=== PATIENT | female | born 1955 | race Caucasian/White ===

== ENCOUNTER → 2017-03-13 | Outpatient (CLI) | payer OTHER ==
[2015-04-29 14:48] VITALS: BP 131/72
[~2017-03-13] MED LIST: AMLO10TA4 PO; BENZ100C2 PO; CALC500T27 PO; CARV12.5 PO; CARV12.52 PO; CIPR500T94 PO; DICL100G7 TP; FLUT16SP NS; GABA-585 PO; GLIP5TAB10 PO; HYDR-2762 PO; INSU100I17 SQ; INSU100V8 SQ; LAMO5TB.2 PO; LISI-334 PO; LISI10TA2 PO; LISI1TAB7 PO; LORA-434 PO; METF-620 PO; MONT10TA9 PO; OMEP20CA9 PO; PARO10TA24 PO; PARO40TA3 PO; POTA10TA31 PO; SIMV20TA3 PO; ZOLP5TAB PO
--- NOTE | 2017-03-13 11:52 | RAD ---
DATE: 03/13/2017 EXAM: DIGITAL SCREEN BILAT W/CAD HISTORY: Routine screening COMPARISON: 12/08/2015 This study was interpreted with the benefit of Computerized Aided Detection (CAD). FINDINGS: There are scattered fibroglandular densities in the breasts. No new or enlarging breast densities are seen. No suspicious microcalcifications have developed. IMPRESSION: Stable mammograms without evidence of malignancy. BI-RADS CATEGORY: 2 BENIGN FINDING(S) RECOMMENDED FOLLOW-UP: 12M 12 MONTH FOLLOW-UP PQRS compliance statement: Patient information was entered into a reminder system with a target due date for the next mammogram. Mammography is a sensitive method for finding small breast cancers, but it does not detect them all and is not a substitute for careful clinical examination. A negative mammogram does not negate a clinically suspicious finding and should not result in delay in biopsying a clinically suspicious abnormality. "Our facility is accredited by the [employer]ammography [employer]."
== END | disposition home or self-care (01) ==
LOC: MAMMO 10:23
PROVIDERS: ATTEND Internal Medicine
DX: Z12.31 Encounter for screening mammogram for malignant neoplasm of breast (principal)
CPT/HCPCS: G0202; 77067

== ENCOUNTER 2018-05-27 14:13 | Emergency (ER) | payer MEDICARE, OTHER | END 2018-05-27 18:19 | disposition home or self-care (01) | LOC: ER 14:13 | DX: M25.562 Pain in left knee (principal); M25.521 Pain in right elbow; R07.81 Pleurodynia; I10 Essential (primary) hypertension; E11.9 Type 2 diabetes mellitus without complications; J44.9 Chronic obstructive pulmonary disease, unspecified; Z86.73 Personal history of transient ischemic attack (TIA), and cerebral infarction without residual deficits; Z98.51 Tubal ligation status; Z88.0 Allergy status to penicillin; Z88.1 Allergy status to other antibiotic agents; Z88.8 Allergy status to other drugs, medicaments and biological substances; Z91.018 Allergy to other foods; W18.39XA Other fall on same level, initial encounter; Y93.89 Activity, other specified; Y92.89 Other specified places as the place of occurrence of the external cause; Y99.8 Other external cause status | CPT/HCPCS: 71101; 73060; 73080; 73562; 99284 ==

== ENCOUNTER 2018-08-14 08:38 | Emergency (ER) | payer MEDICARE, OTHER ==
[~2018-08-14] VITALS: Ht 154.9 cm; Wt 118.8 kg
[~2018-08-14 08:38] MED LIST changes: +BENZ-8 PO; -BENZ100C2 PO; -CALC500T27 PO; +CALC500T30 PO; +DICL100G18 TP; -DICL100G7 TP; -METF-620 PO; +METF10007 PO; +NAPR-683 PO; -PARO10TA24 PO; +PARO10TA57 PO
--- NOTE | 2018-08-14 09:14 | PHYS DOC ---
Past Medical History Past Medical History: COPD, Diabetes-Type II, High Cholesterol, Hypertension, TIA, Other Additional Past Medical Histor: sleep apnea; resp. arrest Past Surgical History: Tubal ligation, Other Additional Past Surgical Histo: breast reduction Alcohol Use: Sober Drug Use: None Adult General Chief Complaint Chief Complaint: KNEE INJURY HPI HPI Patient is a 63 year old female presents to the ED complaining of left knee injury x 2 hours ago. States she accidentally rolled out of bed and landed on her left knee. Describes the pain as sharp. Rates the pain as 8/10. Patient able to ambulate without assistance. Denies head/neck injury, LOC, vision changes, nausea/vomiting, dizziness, weakness, chest pain or shortness of breath. Review of Systems Review of Systems Constitutional: Denies fever or chills [] Respiratory: Denies cough or shortness of breath [] Cardiovascular: No additional information not addressed in HPI [] GI: Denies abdominal pain, nausea, vomiting, bloody stools or diarrhea [] : Denies dysuria or hematuria [] Musculoskeletal: Complains of left knee pain. Denies back pain. Integument: Denies rash or skin lesions [] Neurologic: Denies headache, focal weakness or sensory changes [] All other systems were reviewed and found to be within normal limits, except as documented in this note. Current Medications Current Medications Current Medications Medications (Trade) Dose Ordered Sig/Jam Start Time Stop Time Status Last Admin Dose Admin Acetaminophen/ Hydrocodone Bitart (Lortab 5/325) 1 tab 1X ONCE 08/14/18 10:00 08/14/18 10:03 DC 08/14/18 10:04 1 TAB Allergies Allergies Allergies Coded Allergies Type Severity Reaction Last Updated Verified Penicillins Allergy Intermediate 11/28/14 Yes aspirin Allergy Intermediate Itching 12/01/14 Yes erythromycin base Allergy Intermediate 11/28/14 Yes propoxyphene Allergy Intermediate 12/03/14 Yes Uncoded Allergies Type Severity Reaction Last Updated Verified Mushroom Allergy Intermediate 12/03/14 Physical Exam Physical Exam Constitutional: Well developed, well nourished, no acute distress, non-toxic appearance. [] HENT: Normocephalic, atraumatic Neck: Normal range of motion, no tenderness, supple, no stridor. [] Skin: Warm, dry, no erythema, no rash. [] Back: No tenderness, no CVA tenderness. [] Extremities: mild left anterior knee tenderness/ecchymosis. no cyanosis, no clubbing, ROM intact, no edema. [] Neurologic: Alert and oriented X 3, normal motor function, normal sensory function, no focal deficits noted. [] Psychologic: Affect normal, judgement normal, mood normal. [] Current Patient Data Vital Signs Vital Signs Date Time Temp Pulse Resp B/P (MAP) Pulse Ox O2 Delivery O2 Flow Rate FiO2 08/14/18 10:04 16 93 Room Air 08/14/18 10:02 68 154/67 (96) 08/14/18 08:58 97.9 97.9 EKG EKG [] Radiology/Procedures Radiology/Procedures []PROCEDURE: KNEE LEFT 3V Examination: KNEE LEFT 3V History: injury from falling out of bed this am, large purple bruise on top of knee cap Comparison/Correlation: None Findings: Total 3 images of the left knee were obtained. Slight lateral compartment narrowing and spurring are present. Spurring of the medial compartment noted. No fracture or bone destruction. Prepatellar soft tissue swelling is present. Bony mineralization is adequate. No evidence of joint effusion. Impression: Prepatellar soft tissue swelling. Mild degenerative changes. No fracture. Course & Med Decision Making Course & Med Decision Making Pertinent Labs and Imaging studies reviewed. (See chart for details) []Discussed imaging findings with patient. Patient's pain improved. States she is feeling much better. Able to ambulate without assistance. Mando wrap placed. NV intact post placement. Discussed follow-up with orthopedics if pain persists. Provided contact information/education. Discussed reasons to return to the ED. Patient understands and agrees with plan. Dragon Disclaimer Dragon Disclaimer This electronic medical record was generated, in whole or in part, using a voice recognition dictation system. Departure Departure Impression: Primary Impression: Knee contusion Disposition: HOME, SELF-CARE Condition: IMPROVED Referrals: IZA MUNSON MD (PCP) IRA PENA II, MD Patient Instructions: Contusion TIAN ARRIAGA Aug 14, 2018 09:14
--- NOTE | 2018-08-14 09:43 | RAD ---
Examination: KNEE LEFT 3V History: injury from falling out of bed this am, large purple bruise on top of knee cap Comparison/Correlation: None Findings: Total 3 images of the left knee were obtained. Slight lateral compartment narrowing and spurring are present. Spurring of the medial compartment noted. No fracture or bone destruction. Prepatellar soft tissue swelling is present. Bony mineralization is adequate. No evidence of joint effusion. Impression: Prepatellar soft tissue swelling. Mild degenerative changes. No fracture. Electronically signed by: Preston Becker MD (08/14/2018 9:39 AM) [id number]
[2018-08-14] MEDS ORDERED: HYDROcodone/APAP 5/325MG 1 TAB TABLET PO ONE (10:00)
[2018-08-14 10:02] VITALS: BP 154/67
== END 2018-08-14 10:06 | disposition home or self-care (01) ==
LOC: ER 08:38
DX: S80.02XA Contusion of left knee, initial encounter (principal); J44.9 Chronic obstructive pulmonary disease, unspecified; E11.9 Type 2 diabetes mellitus without complications; E78.00 Pure hypercholesterolemia, unspecified; I10 Essential (primary) hypertension; Z86.73 Personal history of transient ischemic attack (TIA), and cerebral infarction without residual deficits; G47.30 Sleep apnea, unspecified; Z88.0 Allergy status to penicillin; Z88.6 Allergy status to analgesic agent; Z88.1 Allergy status to other antibiotic agents; Z88.8 Allergy status to other drugs, medicaments and biological substances; W06.XXXA Fall from bed, initial encounter; Y93.89 Activity, other specified; Y92.89 Other specified places as the place of occurrence of the external cause; Y99.8 Other external cause status
CPT/HCPCS: 73562; 99284

== ENCOUNTER → 2018-08-22 | Outpatient (CLI) | payer MEDICARE, OTHER ==
[2018-08-14 10:02] VITALS: BP 154/67
--- NOTE | 2018-08-27 15:48 | SLEEP ---
DATE OF STUDY: 08/22/2018 PRIMARY CARE PHYSICIAN: Dr. Iza Estrada. REFERRING PHYSICIAN: Dr. Juan Carlos Matamoros. The patient is 63 years old who weighs 262 pounds and has a BMI of 50. The patient underwent sleep study at [facility]. This was a diagnostic study. During the night study, the patient spent 417 minutes in bed and slept for 345 minutes with a sleep efficiency of 83%. Sleep latency was 75 minutes, which was prolonged with an absent REM sleep. Overall, sleep architecture showed normal stage I and stage II sleep, increased slow wave sleep, which is 42% of total sleep time and absent REM sleep. During the night study, the patient had 7 obstructive apneas, no central apneas, 1 mixed apnea and 64 hypopneas. The patient's apnea-hypopnea index was 13 per hour with a supine index of 11 per hour. REM sleep was not observed. EKG monitoring revealed normal sinus rhythm, average heart rate was 77 beats per minute. No arrhythmias observed. No clinically significant PLM seen. Nocturnal oximetry study revealed an average oxygen saturation of 90% with the lowest of 81%. 100% of time, oxygen saturation remained between 80% and 89%. A sustained nocturnal hypoxia suggesting hypoventilation. Due to low AHI, the patient did not meet the split night criteria for CPAP initiation. IMPRESSION: 1. Mild sleep apnea-hypopnea syndrome at an apnea hypopnea index of 13 per hour. Absence of REM sleep can underestimate the severity of sleep apnea. 2. Nocturnal hypoxia suggesting hypoventilation. 3. No clinically significant periodic limb movements. RECOMMENDATIONS: 1. If the patient is clinically symptomatic, then she should return to the sleep lab for CPAP titration study. Alternate treatment option would be to use an oral appliance as recommended by the dentist. 2. Weight loss is strongly advised. 3. Avoid PRESIDENT depressants. 4. Caution regarding driving until symptoms of sleep apnea resolve with the above recommendations. SESAR DOMINGUEZ MD DR: MIKAELA/julio JOB#: [id number] / [id number] IZA Mendez MD, GEORGE MD
== END | disposition home or self-care (01) ==
LOC: SLPLAB 18:28
PROVIDERS: ATTEND Internal Medicine Pulmonary Disease
DX: G47.39 Other sleep apnea (principal); Z87.891 Personal history of nicotine dependence
CPT/HCPCS: 95810

== ENCOUNTER → 2018-08-24 | Outpatient (CLI) | payer MEDICARE, OTHER ==
[2018-08-14 10:02] VITALS: BP 154/67
--- NOTE | 2018-08-24 15:38 | RAD ---
Examination: CT chest without contrast HISTORY: History of tobacco exposure, lung cancer screening. Comparison: None available Technique: Axial CT images of chest were performed without contrast. Coronal and sagittal reformats are performed Exposure: One or more of the following individualized dose reduction techniques were utilized for this examination: 1. Automated exposure control 2. Adjustment of the mA and/or kV according to patient size 3. Use of iterative reconstruction technique FINDINGS: The visualized thyroid gland grossly appears unremarkable. The central airways are patent. The heart size appears unremarkable. Diffuse coronary artery calcifications. Moderate aortic atherosclerosis. The ascending aorta measures 3.9 cm in transverse dimension. No radiologically significant mediastinal lymphadenopathy identified. There are scattered patchy airspace opacities identified in the right middle lobe, bibasilar lungs in the subpleural region and in the left lingula likely atelectasis or infiltrates. Mild bilateral lung emphysematous changes. There is diffuse decreased attenuation noted throughout the liver likely hepatic steatosis. The visualized spleen, adrenals grossly appears unremarkable. Old fractures of the right anterior is fifth, sixth ribs identified. Moderate degenerative changes thoracic spine. Probable old healed fracture of the sternum. IMPRESSION: 1. Scattered patchy airspace opacities identified in the subpleural region of the right lobe, bibasilar lungs and in the left lingula likely atelectasis or infiltrates. Close interval follow-up examination is recommended. 2. Mild bilateral lung emphysematous changes. 3. Diffuse coronary artery calcifications. 4. Hepatic steatosis. Electronically signed by: Hossein Richardson MD (08/24/2018 3:35 PM) [facility] [facility]
== END | disposition home or self-care (01) ==
LOC: CT 13:13
PROVIDERS: ATTEND Internal Medicine Pulmonary Disease
DX: Z12.2 Encounter for screening for malignant neoplasm of respiratory organs (principal); S22.41XD Multiple fractures of ribs, right side, subsequent encounter for fracture with routine healing; I25.10 Atherosclerotic heart disease of native coronary artery without angina pectoris; K76.0 Fatty (change of) liver, not elsewhere classified; J43.9 Emphysema, unspecified; I70.0 Atherosclerosis of aorta; Z72.0 Tobacco use; X58.XXXD Exposure to other specified factors, subsequent encounter
CPT/HCPCS: 71250

== ENCOUNTER → 2018-09-26 | Outpatient (CLI) | payer MEDICARE, OTHER ==
[~2018-09-26] MED LIST changes: +CEPH-264 PO; +HYDR-3164 PO; +ZOLPIDEM 5 MG TABLET. PO ONE; +guaiFENesin ORAL 200 MG/10 ML LIQUID. PO ONE
--- NOTE | 2018-09-27 12:09 | SLEEP ---
DATE OF STUDY: 09/26/2018 SLEEP STUDY ATTENDING PHYSICIAN: Dr. Iza Estrada. HISTORY: The patient is a 63-year-old who weighs 262 pounds with a BMI of 50. The patient's Atkinson score was 11. The patient had a previous sleep study on 08/22/2018, was found to have mild RYANNE, has an AHI of 13 per hour. However, REM sleep was not observed. As she was symptomatic, as a result, she was referred to the sleep lab for CPAP titration study. During the night study, the patient spent 403 minutes in bed and slept for 330 minutes with a sleep efficiency of 78%. Sleep latency of 73 minutes with a REM latency of 115 minutes. Overall, sleep architecture showed normal stage I and stage 2 sleep, increased slow wave sleep, which is 42% of the total sleep time and reduced REM sleep, which is 13% of the total sleep time. The patient was started on CPAP at a pressure of 5 cm water and titrated up to 18 cm water. At the final pressure, the patient slept for 58 minutes. The patient had supine sleep throughout and a very brief REM period was observed. The patient's AHI was reduced to 1 per hour and oxygen saturations, however, fluctuated in the mid to high 80s with the lowest of 86%. The patient used small size full face mask. EKG monitoring revealed normal sinus rhythm, average heart rate was 75 beats per minute. No arrhythmias observed. PLMs were seen at index of 1 per hour and none caused EEG arousals. IMPRESSION: 1. Sleep apnea diagnosed by previous sleep study. 2. No clinically significant periodic limb movements of sleep. 3. Nocturnal hypoxia secondary to combination of sleep apnea and hypoventilation. Not completely resolved on final CPAP pressure. RECOMMENDATIONS: 1. CPAP at 18 cm water completely eliminated the patient's sleep apnea and should be used on a nightly basis. 2. I would recommend outpatient nocturnal oximetry study while on therapeutic CPAP pressure to assess the need for supplemental oxygen. 3. Weight loss is strongly advised. 4. Avoid [employer] depressants. 5. Caution regarding driving until symptoms of sleep apnea resolve with the use of CPAP. SESAR DOMINGUEZ MD DR: MIKAELA/julio JOB#: [id number] / [id number] IZA Mendez MD
== END | disposition home or self-care (01) ==
LOC: RT 18:26
PROVIDERS: ATTEND Internal Medicine Critical Care Medicine
DX: G47.33 Obstructive sleep apnea (adult) (pediatric) (principal); G47.34 Idiopathic sleep related nonobstructive alveolar hypoventilation
CPT/HCPCS: 95811

== ENCOUNTER 2018-09-30 03:32 | Emergency (ER) | payer MEDICARE, OTHER ==
[~2018-09-30] VITALS: Ht 154.9 cm; Wt 114.3 kg
[~2018-09-30 03:32] MED LIST changes: -CEPH-264 PO; -HYDR-3164 PO; -ZOLPIDEM 5 MG TABLET. PO ONE; -guaiFENesin ORAL 200 MG/10 ML LIQUID. PO ONE
[2018-09-30 03:35] VITALS: BP 165/125
[2018-09-30] MEDS ORDERED: DIPHTH,PERTUSS(ACELL),TET TOX 0.5 ML DISP.SYRIN. VAX IM ONE (04:00)
[2018-09-30] MEDS ORDERED: CEPHALEXIN 250 MG CAPSULE. PO ONE (04:00)
[2018-09-30] MEDS ORDERED: HYDROcodone/APAP 5/325MG 1 TAB TABLET PO ONE (04:00)
--- NOTE | 2018-09-30 04:04 | PHYS DOC ---
Past Medical History Past Medical History: COPD, Diabetes-Type II, High Cholesterol, Hypertension, TIA, Other Additional Past Medical Histor: sleep apnea; resp. arrest Past Surgical History: Tubal ligation, Other Additional Past Surgical Histo: breast reduction Alcohol Use: Sober Drug Use: None Adult General Chief Complaint Chief Complaint: FINGER INJURY HPI HPI This is a 63 year old female who presents to the ED after sustaining a crush injury from a TV tray to her right 4th finger. Pt denies other injuries. Her last tetanus immunization was > 5 years ago. Review of Systems Review of Systems Constitutional: Denies fever or chills [] Respiratory: Denies cough or shortness of breath [] Cardiovascular: Denies chest pain [] GI: Denies abdominal pain, nausea, vomiting, bloody stools or diarrhea [] Musculoskeletal: Denies back pain or joint pain [] Integument: Reports finger laceration [] Neurologic: Denies headache, focal weakness or sensory changes [] All other systems were reviewed and found to be within normal limits, except as documented in this note. Current Medications Current Medications Current Medications Medications (Trade) Dose Ordered Sig/Jam Start Time Stop Time Status Last Admin Dose Admin Acetaminophen/ Hydrocodone Bitart (Lortab 5/325) 1 tab 1X ONCE 09/30/18 04:00 09/30/18 04:19 DC 09/30/18 04:03 1 TAB Cephalexin HCl (Keflex) 500 mg 1X ONCE 09/30/18 04:00 09/30/18 04:19 DC 09/30/18 04:03 500 MG Diphtheria/ Tetanus/Acell Pertussis (Boostrix) 0.5 ml ONCE ONCE 09/30/18 04:00 09/30/18 04:20 DC 09/30/18 04:13 0.5 ML Lidocaine/ Epinephrine (LIDOCAINE 2%-EPI 1:100,000 multi-dose) 20 ml 1X ONCE 09/30/18 04:15 09/30/18 04:17 DC 09/30/18 04:22 20 ML Neomycin/ Polymyxin/ Bacitracin (Triple Antibiotic Ointment) 1 pkt 1X ONCE 09/30/18 04:15 09/30/18 04:19 DC 09/30/18 04:15 1 PKT Allergies Allergies Allergies Coded Allergies Type Severity Reaction Last Updated Verified Penicillins Allergy Intermediate 11/28/14 Yes aspirin Allergy Intermediate Itching 12/01/14 Yes erythromycin base Allergy Intermediate 11/28/14 Yes propoxyphene Allergy Intermediate 12/03/14 Yes Uncoded Allergies Type Severity Reaction Last Updated Verified Mushroom Allergy Intermediate 12/03/14 Physical Exam Physical Exam Constitutional: Well developed, well nourished, no acute distress, non-toxic appearance. [] HENT: Normocephalic, atraumatic, bilateral external ears normal, oropharynx moist, no oral exudates, nose normal. [] Eyes: Conjunctiva normal, no discharge. [] Neck: Normal range of motion, no tenderness, supple, no stridor. [] Cardiovascular:Heart rate regular rhythm, no murmur [] Lungs & Thorax: Bilateral breath sounds clear to auscultation [] Abdomen: Bowel sounds normal, soft, no tenderness, no masses, no pulsatile masses. [] Skin: Partial avulsion injury to the right 4th finger. No FB identified. Warm, dry, no erythema, no rash. [] Back: No tenderness, no CVA tenderness. [] Extremities: Partial avulsion injury to the right 4th finger. No FB identified. No tenderness, no cyanosis, no clubbing, ROM intact, no edema. [] Neurologic: Alert and oriented X 3, normal motor function, normal sensory function, no focal deficits noted. [] Psychologic: Affect normal, judgement normal, mood normal. [] Current Patient Data Vital Signs Vital Signs Date Time Temp Pulse Resp B/P (MAP) Pulse Ox O2 Delivery O2 Flow Rate FiO2 09/30/18 04:03 18 Room Air 09/30/18 03:35 97.9 75 165/125 (138) 95 97.9 EKG EKG [] Radiology/Procedures Radiology/Procedures [] Course & Med Decision Making Course & Med Decision Making Pertinent Labs and Imaging studies reviewed. (See chart for details) []This is a 63-year-old female who presents to the ED with a partial avulsion distal right fourth finger. Wound was irrigated with 300 mL of sterile water and cleaned with ChloraPrep. No foreign bodies upon wound exploration or x-ray. Injury was approximated with 12 sutures. Patient stable for discharge with outpatient follow-up with PCP. Discussed findings and plan with patient and family, who acknowledge understanding and agreement. Dragon Disclaimer Dragon Disclaimer This electronic medical record was generated, in whole or in part, using a voice recognition dictation system. Departure Departure Impression: Primary Impression: Open fracture of distal phalangeal tuft Disposition: 01 HOME, SELF-CARE Condition: STABLE Referrals: IZA MUNSON MD (PCP) SHAN RICK MD Patient Instructions: Finger Fracture, [id number], Fingertip Laceration Additional Instructions: Do not soak your wound. You may shower. Clean wound daily with soap and water. Change dressing 2 times daily. Use over the counter antibiotic ointment with each dressing change. Sutures need to be removed in 7-10 days. Present to your family doctor or local urgent care for removal. You may also present to the ED but it will be an additional visit/charge. After suture removal you may use Vitamin E ointment to soften the wound and prevent scarring. Scripts Cephalexin (KEFLEX) 500 Mg Capsule 500 MG PO QID for 7 Days, #28 CAP Prov: JAMEY STORY DO 09/30/18 Hydrocodone/Apap 5-325 (NORCO 5-325 TABLET) 1 Each Tablet 1 TAB PO PRN Q6HRS PRN for PAIN, #10 TAB 0 Refills Prov: JAMEY STORY DO 09/30/18 Laceration/Wound Repair Laceration/Wound Repair : Wound Location: upper extremity (right 4th finger) Wound's Depth, Shape: irregular, flap (partial avulsion of distal fingertip , nail intact) Wound Length (cm): 5 Wound Explored: no foreign body removed Irrigated w/ Saline (ccs): 300 Anesthesia: 1% Lidocaine Volume Anesthetic (ccs): 2 Wound Repaired With: sutures Suture Size/Type: 5:0, nylon Number of Sutures: 12 Layer Closure?: Yes Deep Layer Suture Size/Type: 5:0 (vicryl) Number Deep Layer Sutures: 2 Sterile Dressing Applied?: Yes Splint Applied?: Yes Type of Splint Applied: aluminum finger splint Progress Partial avulsion well approximated with sutures. Pt tolerated procedure well. JAMEY STORY DO Sep 30, 2018 04:04
[2018-09-30] MEDS ORDERED: NEOMY/BACITR/POLYMYXIN OINT PACKET. TP ONE (04:15)
[2018-09-30] MEDS ORDERED: LIDOCAINE 2%/EPI 1:100,000 20 ML VIAL. IJ ONE (04:15)
[2018-09-30] MEDS ORDERED: HYDR-3164 PO (05:17)
[2018-09-30] MEDS ORDERED: CEPH-264 PO (05:17)
--- NOTE | 2018-09-30 07:47 | RAD ---
EXAM: 3 views right ring finger DATE: 09/30/2018 4:00 AM INDICATION: CRUSH INJURY, 4TH DIGIT COMPARISON: No Prior FINDINGS/ IMPRESSION: Comminuted, displaced fracture of the tuft of the right ring finger with full-thickness laceration resulting in approximately 3 mm palmar migration of the tuft fragment. Moderate associated soft tissue swelling is seen. Electronically signed by: Javier Gleason MD (09/30/2018 7:44 AM) [facility]
== END 2018-09-30 05:46 | disposition home or self-care (01) ==
LOC: ER 03:32
DX: S62.634A Displaced fracture of distal phalanx of right ring finger, initial encounter for closed fracture (principal); J44.9 Chronic obstructive pulmonary disease, unspecified; E78.00 Pure hypercholesterolemia, unspecified; E11.9 Type 2 diabetes mellitus without complications; I10 Essential (primary) hypertension; Z86.73 Personal history of transient ischemic attack (TIA), and cerebral infarction without residual deficits; Z88.0 Allergy status to penicillin; Z88.1 Allergy status to other antibiotic agents; Z88.6 Allergy status to analgesic agent; Z88.8 Allergy status to other drugs, medicaments and biological substances; Z91.018 Allergy to other foods; W23.0XXA Caught, crushed, jammed, or pinched between moving objects, initial encounter; Y93.89 Activity, other specified; Y92.89 Other specified places as the place of occurrence of the external cause; Y99.8 Other external cause status
CPT/HCPCS: 29130; 73140; 90471; 90715; 99284; J3490

== ENCOUNTER → 2020-01-06 | Outpatient (CLI) | payer MEDICARE ==
[2019-11-26 08:57] VITALS: BP 178/77
[~2020-01-06] MED LIST changes: +ACET500T68 PO; +AMLO2.5T5 PO; +ATOR10TA60 PO; +CARV12.511 PO; -CARV12.52 PO; +CEFD300C PO; +CEPH-264 PO; +CYAN-25 PO; +DULO60CA6 PO; +HYDR-2145 PO; -HYDR-2762 PO; +HYDR-2765 PO; +HYDR-3164 PO; +HYDR200T5 PO; +IPRA3AMP29 NEB; +LISI1TAB20 PO; -LISI1TAB7 PO; +MOME13HF IH; +MONT10TA49 PO; -MONT10TA9 PO; +OMEG1CAP6 PO; +OMEP20CA16 PO; -OMEP20CA9 PO; +POTA20TA4 PO; +PRED-220 PO; +SIMV20TA18 PO; -SIMV20TA3 PO; +TIZA4TAB2 PO; +TRAM50TA PO; +ZOLPIDEM 5 MG TABLET. PO ONE; +[UNRECOGNIZED DRUG - CODE] PO
--- NOTE | 2020-01-07 09:58 | SLEEP ---
DATE OF STUDY: ATTENDING PHYSICIAN: Iza Estrada M.D. REFERRING PHYSICIAN: Juan Carlos Matamoros M.D. The patient is 64 years old who weighs 256 pounds with a BMI of 48. The patient had a previous history of mild sleep apnea. The patient was also using CPAP at 18 cm water based on the study in 2018. Another CPAP titration study was requested by the patient's photo optics technician. During the night study, the patient spent 434 minutes in bed and slept for 360 minutes with a sleep efficiency of 83%. Sleep latency was 28 minutes with absent REM sleep. Overall, sleep architecture showed normal stage 1 sleep, increased stage 2 sleep, increased slow wave and absent REM sleep. EKG monitoring revealed an average heart rate of 84 beats per minute, no sustained arrhythmias observed. PLMS were seen at an index of 48 per hour and 13 per hour caused EEG arousals. The patient was started on CPAP at 18 cm water and titrated up to 20 cm water. The patient was then switched to BiPAP starting at a pressure of 24/20 and titrated up to 30/25. At that pressure, the patient had 46 minutes of sleep and AHI was 0 per hour. However, looking in detail about the CPAP and BiPAP data, I think the patient did reasonably well. At a CPAP pressure of 20 cm water, the patient slept for 84 minutes. The patient had supine sleep throughout. No REM sleep observed. The patient's AHI was 6 per hour and oxygen saturations remained in the mid to high 80s.despite resolution of respiratory events. I would recommend the patient should be placed on this CPAP pressure with oxygen. The patient used small size full-face mask. IMPRESSION: 1. Sleep apnea diagnosed by previous sleep study. 2. [id number] period limb movements of sleep. RECOMMENDATIONS: 1. CPAP at 20 cm of water with 1 L of supplemental oxygen should be used on a nightly basis. 2. Follow up in 4-6 weeks to assess compliance with CPAP and to document clinical improvement. 3. Weight loss is strongly advised. 4. Avoid BROACH [employer]ER depressants. 5. Cautioned regarding driving until symptoms of sleep apnea resolve with the use of CPAP. 6. The patient should also be ruled out for other etiologies of hypoxia such as underlying pulmonary or cardiac conditions. SESAR DOMINGUEZ MD DR: MIKAELA/julio JOB#: [id number] / [id number] IZA Mendez MD, GEORGE MD [facility]
== END ==
LOC: RT 18:54
PROVIDERS: ATTEND Internal Medicine Pulmonary Disease
DX: G47.30 Sleep apnea, unspecified (principal)
CPT/HCPCS: 95811

== ENCOUNTER → 2020-01-28 | Outpatient (CLI) | payer MEDICARE, OTHER ==
[2019-11-26 08:57] VITALS: BP 178/77
[~2020-01-28] MED LIST changes: -ZOLPIDEM 5 MG TABLET. PO ONE
--- NOTE | 2020-01-29 08:22 | RAD ---
History: Routine Screening. Technique: Bilateral digital mammographic routine views were obtained with CAD - computer aided detection. Comparison: 03/13/17, 12/08/15 . Findings: Breast Tissue Density A : The breast tissue is predominately fatty replaced. There are no suspicious masses, microcalcifications or areas of architectural distortion. Impression: Negative mammogram. BI-RADS Category 1: Negative. Normal interval followup. . A mammogram does not have 100% sensitivity and therefore a negative imaging study should not delay further work up of a suspicious abnormality. The patient will receive a letter with the results in the mail. Patient information is entered into the reminder system with a target due date for the next screening mammogram. The patient will receive a reminder. "Our facility is accredited by the [employer] Mammography Program." BI-RADS 1 -- negative findings (within normal)
== END | disposition home or self-care (01) ==
LOC: MAMMO 09:21
PROVIDERS: ATTEND Internal Medicine
DX: Z12.31 Encounter for screening mammogram for malignant neoplasm of breast (principal)
CPT/HCPCS: 77067

== ENCOUNTER 2021-02-21 08:59 | Emergency (ER) | payer OTHER ==
[~2021-02-21] VITALS: Ht 152.4 cm; Wt 63.6 kg
[~2021-02-21 08:59] MED LIST changes: -DICL100G18 TP; +DICL100G54 TP; -LISI-334 PO; +LISI10TA16 PO; -LISI10TA2 PO; +LISI20TA18 PO
[2021-02-21] MEDS ORDERED: IV NORMAL SALINE 1000ML BAG 1,000 ML IV ONE (10:00)
[2021-02-21] MEDS ORDERED: DEXAMETHASONE SOD PHOS 20 MG/5 ML VIAL. IVP ONE (10:00)
--- NOTE | 2021-02-21 10:06 | RAD ---
Exam performed: One view chest HISTORY: Shortness of breath DATE OF SERVICE: 02/21/2021. COMPARISON: One view chest from 11/22/2019. FINDINGS: Single AP upright portable view chest is obtained. Cardiomegaly. Pulmonary vascularity is unremarkabl e. There is suggestion of a right hilar mass or fullness.. This could perhaps also represent a promin ent pulmonary artery. The lungs are essentially clear. Haziness in the left lung base is perhaps rela julio to overlying soft tissues and cardiac silhouette. IMPRESSION: Right hilar fullness/mass. Evaluation with CT chest with contrast may be obtained to rule out possibi lity of underlying mass or lymph node Electronically signed by: Jaimee Nogueira MD (02/21/2021 10:04 AM) [facility]
[2021-02-21 10:23] LABS: BASO % 0 % (0-3); EOS # 0.1 x10^3/uL (0.0-0.7); EOS % 1 % (0-3); HEMOGLOBIN 10.3 g/dL (12.0-15.5); LYMPH # 0.7 x10^3/uL (1.0-4.8); LYMPH % 7 % (24-48); MEAN CORPUSCULAR HEMOGLOBIN 28 pg (25-35); MEAN CORPUSCULAR HGB CONC 33 g/dL (31-37); MEAN CORPUSCULAR VOLUME 84 fL (79-100); MONO # 0.9 x10^3/uL (0.0-1.1); MONO % 9 % (0-9); NEUT # 8.1 x10^3/uL (1.8-7.7); NEUT % 83 % (31-73); PLATELET COUNT 204 x10^3/uL (140-400); RED CELL DISTRIBUTION WIDTH 15.2 % (11.5-14.5); WHITE BLOOD COUNT 9.7 x10^3/uL (4.0-11.0)
[2021-02-21 10:33] LABS: CALCIUM 9.2 mg/dL (8.5-10.1); CREATININE 1.2 mg/dL (0.6-1.0); GFR 44.8; POTASSIUM 3.5 mmol/L (3.5-5.1)
[2021-02-21 10:35] LABS: INFLUENZA A PATIENT NEGATIVE (NEGATIVE); INFLUENZA B PATIENT NEGATIVE (NEGATIVE)
--- NOTE | 2021-02-21 10:35 | ED.ADGEN ---
Past Medical History Past Medical History: Arthritis, COPD, Diabetes-Type II, Fibromyalgia, High Cholesterol, Hypertension, TIA, Other Additional Past Medical Histor: sleep apnea; resp. arrest, OSTEO & RHEUMATOID ARTHRITIS,PSORIASIS Past Surgical History: Tubal ligation, Other Additional Past Surgical Histo: breast reduction Smoking Status: Former Smoker Alcohol Use: Sober Drug Use: None General Adult EDM: Chief Complaint: SHORTNESS OF BREATH HPI: HPI: Patient is a 65 year old female coming in for worsening shortness of breath. Patient usually has oxygen numbers at home, 2 L nasal cannula. Says short of breath document emergency department was satting 82% on room air. Patient states she has had worsening shortness of breath, cough, and fatigue. Denies any known Covid exposures and has had her first [place] vaccine and is scheduled for second 1 in 1 week. Denies any GI complaints, fevers, urinary complaints, or loss of smell or taste. Has a history of COPD and former tobacco use. Review of Systems: Review of Systems: All other systems within normal limits except for as noted in the HPI Current Medications: Current Medications Medications (Trade) Dose Ordered Sig/Jam Start Time Stop Time Status Last Admin Dose Admin Dexamethasone Sodium Phosphate (Decadron) 10 mg 1X ONCE 02/21/21 10:00 02/21/21 10:01 DC 02/21/21 10:38 10 MG Info (CONTRAST GIVEN -- Rx MONITORING) 1 each PRN DAILY PRN 02/21/21 11:30 02/23/21 11:29 Iohexol (Omnipaque 350 Mg/ml) 75 ml 1X ONCE 02/21/21 11:30 02/21/21 11:31 DC 02/21/21 11:47 90 ML Sodium Chloride 1,000 ml @ 1,000 mls/hr 1X ONCE 02/21/21 10:00 02/21/21 10:59 DC 02/21/21 10:38 1,000 MLS/HR Allergies: Allergies: Allergies Coded Allergies Type Severity Reaction Last Updated Verified Penicillins Allergy Intermediate 09/24/19 Yes aspirin Allergy Intermediate Itching 12/01/14 Yes erythromycin base Allergy Intermediate 11/28/14 Yes levofloxacin Allergy Intermediate HIVES 09/25/19 Yes mushroom Allergy Intermediate 09/24/19 Yes propoxyphene Allergy Intermediate 12/03/14 Yes Physical Exam: PE: Constitutional: Well developed, well nourished, no acute distress, non-toxic appearance. [] HENT: Normocephalic, atraumatic, bilateral external ears normal, nose normal. [] Eyes: PERRLA, conjunctiva normal, no discharge. [] Neck: No rigidity, supple, no stridor. [] Cardiovascular: Regular rate and rhythm, brisk cap refill [] Lungs & Thorax: Non labored symmetric respirations, mild tachypnea without accessory muscle use, diminished breath sounds. [] Abdomen: Soft, nondistended, no tenderness. Skin: Warm, dry, no erythema, no rash. [] Back: Unremarkable Extremities: No deformities, range of motion grossly intact, no lower extremity edema [] Neurologic: Alert and oriented X 3, no focal deficits noted. [] Psychologic: Affect normal, judgement normal, mood normal. [] Current Patient Data: Labs: Laboratory Tests Test 02/21/21 09:47 02/21/21 10:04 02/21/21 10:43 Influenza Type A Antigen Negative (NEGATIVE) Influenza Type B Antigen Negative (NEGATIVE) SARS-CoV-2 RNA (ZAHRA) Negative (Negative) White Blood Count 9.7 x10^3/uL (4.0-11.0) Red Blood Count 3.70 x10^6/uL (3.50-5.40) Hemoglobin 10.3 g/dL (12.0-15.5) L Hematocrit 31.0 % (36.0-47.0) L Mean Corpuscular Volume 84 fL (79-100) Mean Corpuscular Hemoglobin 28 pg (25-35) Mean Corpuscular Hemoglobin Concent 33 g/dL (31-37) Red Cell Distribution Width 15.2 % (11.5-14.5) H Platelet Count 204 x10^3/uL (140-400) Neutrophils (%) (Auto) 83 % (31-73) H Lymphocytes (%) (Auto) 7 % (24-48) L Monocytes (%) (Auto) 9 % (0-9) Eosinophils (%) (Auto) 1 % (0-3) Basophils (%) (Auto) 0 % (0-3) Neutrophils # (Auto) 8.1 x10^3/uL (1.8-7.7) H Lymphocytes # (Auto) 0.7 x10^3/uL (1.0-4.8) L Monocytes # (Auto) 0.9 x10^3/uL (0.0-1.1) Eosinophils # (Auto) 0.1 x10^3/uL (0.0-0.7) Basophils # (Auto) 0.0 x10^3/uL (0.0-0.2) D-Dimer (Tiffanie) 0.77 ug/mlFEU (0.00-0.50) H Sodium Level 138 mmol/L (136-145) Potassium Level 3.5 mmol/L (3.5-5.1) Chloride Level 100 mmol/L (98-107) Carbon Dioxide Level 31 mmol/L (21-32) Anion Gap 7 (6-14) Blood Urea Nitrogen 18 mg/dL (7-20) Creatinine 1.2 mg/dL (0.6-1.0) H Estimated GFR (Cockcroft-Gault) 44.8 BUN/Creatinine Ratio 15 (6-20) Glucose Level 150 mg/dL (70-99) H Lactic Acid Level 1.6 mmol/L (0.4-2.0) Calcium Level 9.2 mg/dL (8.5-10.1) Total Bilirubin 0.6 mg/dL (0.2-1.0) Aspartate Amino Transferase (AST) 16 U/L (15-37) Alanine Aminotransferase (ALT) 27 U/L (14-59) Alkaline Phosphatase 54 U/L (46-116) Troponin I Quantitative < 0.017 ng/mL (0.000-0.055) QC-Mnb-R-Type Natriuretic Peptide 442 pg/mL (0-124) H Total Protein 7.0 g/dL (6.4-8.2) Albumin 3.5 g/dL (3.4-5.0) Albumin/Globulin Ratio 1.0 (1.0-1.7) Urine Collection Type Unknown Urine Color Yellow Urine Clarity Clear Urine pH 6.5 (<5.0-8.0) Urine Specific Dinosaur 1.010 (1.000-1.030) Urine Protein 100 mg/dL (NEG-TRACE) Urine Glucose (UA) Negative mg/dL (NEG) Urine Ketones (Stick) Negative mg/dL (NEG) Urine Blood Small (NEG) Urine Nitrite Positive (NEG) Urine Bilirubin Negative (NEG) Urine Urobilinogen Dipstick 1.0 mg/dL (0.2 mg/dL) Urine Leukocyte Esterase Small (NEG) Urine RBC 3-5 /HPF (0-2) Urine WBC 20-40 /HPF (0-4) Urine Squamous Epithelial Cells Mod /LPF Urine Bacteria Many /HPF (0-FEW) Urine Mucus Slight /LPF Laboratory Tests 02/21/21 10:04 Laboratory Tests 02/21/21 10:04 Vital Signs: Vital Signs Date Time Temp Pulse Resp B/P (MAP) Pulse Ox O2 Delivery O2 Flow Rate FiO2 02/21/21 09:30 102.5 24 195/84 (121) 82 Room Air 102.5 EKG: EKG: Sinus rhythm warranted there is minute, normal axis. No ST elevation or depression, no ectopy. [] Heart Score: C/O Chest Pain: No Risk Factors: Risk Factors: DM, Current or recent (<one month) smoker, HTN, HLP, family history of CAD, obesity. Risk Scores: Score 0 - 3: 2.5% MACE over next 6 weeks - Discharge Home Score 4 - 6: 20.3% MACE over next 6 weeks - Admit for Clinical Observation Score 7 - 10: 72.7% MACE over next 6 weeks - Early Invasive Strategies Radiology/Procedures: Radiology/Procedures: Exam performed: One view chest HISTORY: Shortness of breath DATE OF SERVICE: 02/21/2021. COMPARISON: One view chest from 11/22/2019. FINDINGS: Single AP upright portable view chest is obtained. Cardiomegaly. Pulmonary vascularity is unremarkable. There is suggestion of a right hilar mass or fullness.. This could perhaps also represent a prominent pulmonary artery. The lungs are essentially clear. Haziness in the left lung base is perhaps related to overlying soft tissues and cardiac silhouette. IMPRESSION: Right hilar fullness/mass. Evaluation with CT chest with contrast may be obtained to rule out possibility of underlying mass or lymph node [] Course & Med Decision Making: Course & Med Decision Making Pertinent Labs and Imaging studies reviewed. (See chart for details) CT clear for pneumonia, patient will be discharged as a PUI for COVID-19. Has urinary tract infection. Patient will be sent home with steroids due to COPD and antibiotics. Tract infection. Patient initially was hypoxic on room air but comes up and is maintaining her O2 sats in the high 90s. Has home oxygen and is instructed to wear it [] Dragon Disclaimer: Dragon Disclaimer: This electronic medical record was generated, in whole or in part, using a voice recognition dictation system. Departure Departure Impression: Primary Impression: UTI (lower urinary tract infection) Additional Impressions: COPD (chronic obstructive pulmonary disease) Person under investigation for COVID-19 Disposition: 01 DC HOME SELF CARE/HOMELESS Condition: STABLE Referrals: IZA MUNSON MD (PCP) Additional Instructions: You have been tested for or diagnosed with COVID-19. It is an infection caused by a new type of coronavirus. COVID-19 will cause cold-like or mild flu symptoms in most. It can cause more severe symptoms like problems breathing in some. There is no treatment for COVID-19. The body will clear the infection over time. Self-care will help to ease discomfort. Steps to Take: Self-Care Rest as needed. Healthy habits may help you feel better. Steps include: Choose healthy foods including fruits and vegetables. Drink water throughout the day. Get plenty of sleep each night. If you smoke, try to quit. It may ease breathing. Avoid alcohol. Keep Others Healthy The virus can spread to others. Droplets are released every time you sneeze or cough. The droplets can get into the mouth, nose, or eyes of people near you and lead to infection. To lower the chances of spreading COVID-19 to others: Stay at home until your doctor has said it is safe to leave. If you tested positive this will mean staying isolated until both of the following are true: At least 7 days have passed since the start of illness. You are free of fever for at least 72 hours without the use of medicine. During this time: - Avoid public areas, events, or transportation. Do not return to work or critical access hospitaloo until your doctor has said it is safe to do so. - Call ahead if you need to go to a medical center. Let them know you may have COVID-19. It will help them guide you where to go. They may also ask you to wear a facemask when you come to the office. - If you call for emergency medical services, let them know you may have COVID- 19. While at home: - Try to avoid close contact with others. Stay about 6 feet away. - If possible, spend most of your time in a separate room from others. - Use a face mask if you will be in close contact with others such as sharing a room or vehicle. - Have someone wipe down common surfaces in the home. Use household paper box cutter every day on areas like doorknobs, counters, or sinks. - Cough or sneeze into a tissue. Throw the tissue away right after use. If a tissue is not available, cough or sneeze into your elbow. - Wash your hands often. Wash them after sneezing or coughing. Use soap and water and wash for at least 20 seconds. Alcohol based hand cotton cleaner can be used if soap and water is not available. - Do not prepare food for others. Avoid sharing personal items like forks, spoons, or toothbrushes. - Avoid close contact with pets while you are sick. There is no evidence of the virus passing to pets. This is a safety step until more is known about this virus. Isolation can be frustrating. Social interaction can help. Keep in touch with friends and family through phone and tech options. You can still interact with others in your home, just keep a safe distance of about 6 feet. Follow-up: Your doctors office will check in with you to see if there are any changes in your health. You may be asked to keep track of symptoms to share with them. They will also let you know when you are clear to be in public again. Problems to Look Out For: Contact your doctor if your recovery is not going as you expect. Get emergency care if you have problems such as: - Trouble breathing - Nonstop chest pain or pressure - Changes in awareness, confusion, or problems waking - Lips or face have bluish color - Worsening of symptoms If you think you have an emergency, call for emergency medical services right away. [facility] [place] [facility] [place] [facility] [place] [facility] Prednisone (PREDNISONE) 50 Mg Tablet 1 TAB PO DAILY for steroid, #5 TAB Prov: BLANCA RODRIGUEZ MD 02/21/21 Cefpodoxime Proxetil (CEFPODOXIME PROXETIL) 200 Mg Tablet 1 TAB PO BID for antibiotic, #14 TAB Prov: BLANCA RODRIGUEZ MD 02/21/21 Problem Qualifiers BLANCA RODRIGUEZ MD Feb 21, 2021 10:35
[2021-02-21 10:39] LABS: ALBUMIN 3.5 g/dL (3.4-5.0); TOTAL BILIRUBIN 0.6 mg/dL (0.2-1.0)
[2021-02-21 10:53] LABS: BILIRUBIN,URINE NEGATIVE (NEG); CLARITY,URINE CLEAR; COLOR,URINE YELLOW; NITRITE,URINE POSITIVE (NEG); PH,URINE 6.5 (<5.0-8.0); PROTEIN,URINE 100 mg/dL (NEG-TRACE)
[2021-02-21 10:59] LABS: BACTERIA,URINE MANY /HPF (0-FEW)
[2021-02-21 11:00] LABS: WBC,URINE 20-40 /HPF (0-4)
[2021-02-21] MEDS ORDERED: CONTRAST GIVEN. MC PRN (11:30)
[2021-02-21] MEDS ORDERED: IOHEXOL 350 MG/ML 100 ML VIAL. IV ONE (11:30)
--- NOTE | 2021-02-21 12:07 | RAD ---
CTA CHEST dated 02/21/2021 11:24 AM Indication:Reason: HYPOXIA, possible PE / Spl. Instructions: IV OMNI 350 90 MLS / History: Comparison: CT chest 08/24/2018. Technique: Thin section images were made through the chest using an infusion of 90 mL Omnipaque 350. MIP reconstructions were performed. One or more of the following individualized dose reduction techniques were utilized for this examinat ion: 1. Automated exposure control 2. Adjustment of the mA and/or kV according to patient size 3. Use of iterative reconstruction technique Findings: Peripheral areas of opacity on the prior study have cleared. There is minimal atelectasis. Mild motio n artifact slightly limits evaluation. There is evidence of some mild underlying emphysema. No other significant pulmonary parenchymal abnormality is seen. The central airways show no obstruction. No en larged lymph nodes are seen. The thoracic aorta is normal in caliber without evidence of dissection. Evaluation of the pulmonary arterial tree shows modest opacification of the pulmonary artery branches . Evaluation is limited somewhat by the respiratory motion artifact. No abnormal filling defect is id entified, at least out to the segmental branch level. Images through the upper abdomen show some fatty infiltration of the liver, but no acute abnormality is seen. IMPRESSION: No identified acute abnormality. There is minimal atelectasis in the lungs. No pulmonary embolism is seen, although evaluation of smaller peripheral branches is limited by respiratory motion. Electronically signed by: Doug Napoles Jr., MD (02/21/2021 12:05 PM) [id number]
[2021-02-21 13:28] VITALS: BP 150/69
[2021-02-21] MEDS ORDERED: PRED50TA PO (13:30)
[2021-02-21] MEDS ORDERED: CEFP200T PO (13:30)
--- NOTE | 2021-02-22 07:29 | EKG ---
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
--- NOTE | 2021-02-22 09:30 | NUR ---
IP: Informed pt of negative COVID test. Pt verbalized understanding.
== END 2021-02-21 14:19 | disposition home or self-care (01) ==
LOC: ER 08:59
DX: J44.9 Chronic obstructive pulmonary disease, unspecified (principal); Z20.822 Contact with and (suspected) exposure to COVID-19; N39.0 Urinary tract infection, site not specified; R05 Cough; M19.90 Unspecified osteoarthritis, unspecified site; E11.9 Type 2 diabetes mellitus without complications; M79.7 Fibromyalgia; E78.00 Pure hypercholesterolemia, unspecified; I10 Essential (primary) hypertension; Z86.73 Personal history of transient ischemic attack (TIA), and cerebral infarction without residual deficits; Z87.891 Personal history of nicotine dependence; Z98.51 Tubal ligation status; Z98.890 Other specified postprocedural states; Z88.0 Allergy status to penicillin; Z88.1 Allergy status to other antibiotic agents; Z88.8 Allergy status to other drugs, medicaments and biological substances; Z91.018 Allergy to other foods; Z88.6 Allergy status to analgesic agent
CPT/HCPCS: 36415; 71045; 71275; 80053; 81001; 83605; 83880; 84484; 85025; 85379; 87040; 87086; 87205; 87804; 93005; 96361; 96374; 99285; J1100; J7030; Q9967; U0003

== ENCOUNTER 2021-02-22 10:15 | Emergency (ER) | payer OTHER ==
[~2021-02-22] VITALS: Ht 154.9 cm; Wt 115.5 kg
[~2021-02-22 10:15] MED LIST changes: +CEFP200T PO; +PRED50TA PO
--- NOTE | 2021-02-22 10:33 | PHYS DOC ---
Past Medical History Past Medical History: Arthritis, COPD, Diabetes-Type II, Fibromyalgia, High Cholesterol, Hypertension, TIA, Other Additional Past Medical Histor: sleep apnea; resp. arrest, OSTEO & RHEUMATOID ARTHRITIS,PSORIASIS Past Surgical History: Tubal ligation, Other Additional Past Surgical Histo: breast reduction Smoking Status: Former Smoker Alcohol Use: Sober Drug Use: None General Adult EDM: Chief Complaint: ABNORMAL LABS HPI: HPI: Patient is a 65 year old female with history of diabetes type 2, hypertension, high cholesterol, fibromyalgia, COPD on oxygen 2 L at home who presents today for repeat lab draws. Patient was seen in the ED yesterday for shortness of breath, diagnosed with UTI and sent home on antibiotics. She states today she received a call that one of her blood cultures grew infection. She states she only wants the blood cultures drawn and does not want any other testing or lab draws. She states she feels 100% better and is actually questioning why she is in the ED right now Blood culture was positive for GRAM POSITIVE RODS IN 1 OF 2 BOTTLES OF A SINGLE SET COLLECTED. Review of Systems: Review of Systems: Constitutional: Return for blood draw denies fever or chills. [] Eyes: Denies change in visual acuity. [] HENT: Denies nasal congestion or sore throat. [] Respiratory: Denies cough or shortness of breath. [] Cardiovascular: Denies chest pain or edema. [] GI: Denies abdominal pain, nausea, vomiting, bloody stools or diarrhea. [] : Denies dysuria. [] Musculoskeletal: Denies back pain or joint pain. [] Integument: Denies rash. [] Neurologic: Denies headache, focal weakness or sensory changes. [] Psychiatric: Denies depression or anxiety. [] Heart Score: C/O Chest Pain: N/A Risk Factors: Risk Factors: DM, Current or recent (<one month) smoker, HTN, HLP, family history of CAD, obesity. Risk Scores: Score 0 - 3: 2.5% MACE over next 6 weeks - Discharge Home Score 4 - 6: 20.3% MACE over next 6 weeks - Admit for Clinical Observation Score 7 - 10: 72.7% MACE over next 6 weeks - Early Invasive Strategies Allergies: Allergies: Allergies Coded Allergies Type Severity Reaction Last Updated Verified Penicillins Allergy Intermediate 09/24/19 Yes aspirin Allergy Intermediate Itching 12/01/14 Yes erythromycin base Allergy Intermediate 11/28/14 Yes levofloxacin Allergy Intermediate HIVES 09/25/19 Yes mushroom Allergy Intermediate 09/24/19 Yes propoxyphene Allergy Intermediate 12/03/14 Yes Physical Exam: PE: Constitutional: Well developed, well nourished, no acute distress, non-toxic appearance. [] HENT: Normocephalic, atraumatic, bilateral external ears normal, oropharynx moist, no oral exudates, nose normal. [] Eyes: PERRLA, EOMI, conjunctiva normal, no discharge. [] Neck: Normal range of motion, no tenderness, supple, no stridor. [] Cardiovascular:Heart rate regular rhythm, no murmur [] Lungs & Thorax: Bilateral breath sounds clear to auscultation [] Abdomen: Bowel sounds normal, soft, no tenderness, no masses, no pulsatile masses. [] Skin: Warm, dry, no erythema, no rash. [] Back: No tenderness, no CVA tenderness. [] Extremities: No tenderness, no cyanosis, no clubbing, ROM intact, no edema. [] Neurologic: Alert and oriented X 3, normal motor function, normal sensory function, no focal deficits noted. [] Psychologic: Affect normal, judgement normal, mood normal. [] EKG: EKG: [] Radiology/Procedures: Radiology/Procedures: [] Course & Med Decision Making: Course & Med Decision Making Labs and Imaging studies reviewed. (See chart for details) This is a 65-year-old female patient presenting to the ED today for for repeat blood cultures. She was in the ED yesterday for shortness of breath and diagnosed with UTI. This morning one of her blood cultures bottles grew gram- positive rods. Patient is insisting only blood cultures to be done and she goes home. She states she is 100% better. Blood cultures were drawn, positive results will be called to patient. She was discharged to home. Follow-up with PCP Kerry Disclaimer: Kerry Disclaimer: This electronic medical record was generated, in whole or in part, using a voice recognition dictation system. Departure Departure Impression: Primary Impression: Positive blood cultures Disposition: HOME / SELF CARE / HOMELESS Condition: STABLE Referrals: IZA MUNSON MD (PCP) Follow-up in the course of this week Patient Instructions: Blood Culture and Sensitivity Additional Instructions: You had blood cultures drawn today. We will call you with the positive results, if you do not hear from us the results are negative. Please continue taking the rest of your medicines. Follow-up with your doctor in the course of this week, come back to the ED symptoms worsen DEMIAN DEL TORO APRN Feb 22, 2021 10:33
[2021-02-22 11:42] VITALS: BP 164/82
== END 2021-02-22 11:40 | disposition home or self-care (01) ==
LOC: ER 10:15
DX: R78.81 Bacteremia (principal); R06.02 Shortness of breath; M19.90 Unspecified osteoarthritis, unspecified site; J44.9 Chronic obstructive pulmonary disease, unspecified; E11.9 Type 2 diabetes mellitus without complications; M79.7 Fibromyalgia; E78.00 Pure hypercholesterolemia, unspecified; I10 Essential (primary) hypertension; Z86.73 Personal history of transient ischemic attack (TIA), and cerebral infarction without residual deficits; Z98.51 Tubal ligation status; Z87.891 Personal history of nicotine dependence; Z98.890 Other specified postprocedural states; Z88.0 Allergy status to penicillin; Z88.1 Allergy status to other antibiotic agents; Z88.8 Allergy status to other drugs, medicaments and biological substances; Z88.6 Allergy status to analgesic agent
CPT/HCPCS: 36415; 87040; 99284

== ENCOUNTER 2021-03-23 10:45 | Emergency (ER) | payer OTHER ==
[~2021-03-23] VITALS: Ht 154.9 cm; Wt 110.9 kg
[2021-03-23] MEDS ORDERED: ONDANSETRON PF 4 MG/2 ML VIAL. IV ONE (11:30)
[2021-03-23] MEDS ORDERED: hydrALAZINE 20 MG/ML VIAL. IVP ONE ×2 (11:30→14:00)
[2021-03-23] MEDS ORDERED: FAMOTIDINE 20 MG/2 ML VIAL IVP ONE (11:30)
[2021-03-23 11:38] LABS: BILIRUBIN,URINE NEGATIVE (NEG); CLARITY,URINE CLEAR; COLOR,URINE YELLOW; NITRITE,URINE NEGATIVE (NEG); PH,URINE 7.5 (<5.0-8.0); PROTEIN,URINE >=300 mg/dL (NEG-TRACE)
[2021-03-23 11:44] LABS: BASO % 0 % (0-3); EOS # 0.1 x10^3/uL (0.0-0.7); EOS % 1 % (0-3); HEMOGLOBIN 11.8 g/dL (12.0-15.5); LYMPH # 1.6 x10^3/uL (1.0-4.8); LYMPH % 22 % (24-48); MEAN CORPUSCULAR HEMOGLOBIN 28 pg (25-35); MEAN CORPUSCULAR HGB CONC 34 g/dL (31-37); MEAN CORPUSCULAR VOLUME 83 fL (79-100); MONO # 0.4 x10^3/uL (0.0-1.1); MONO % 6 % (0-9); NEUT # 5.1 x10^3/uL (1.8-7.7); NEUT % 71 % (31-73); PLATELET COUNT 263 x10^3/uL (140-400); RED BLOOD COUNT 4.24 x10^6/uL (3.50-5.40); RED CELL DISTRIBUTION WIDTH 15.8 % (11.5-14.5); WHITE BLOOD COUNT 7.2 x10^3/uL (4.0-11.0)
[2021-03-23 12:00] LABS: BACTERIA,URINE 0 /HPF (0-FEW); RBC,URINE 0 /HPF (0-2)
[2021-03-23 12:00] LABS: CALCIUM 9.4 mg/dL (8.5-10.1); CREATININE 0.8 mg/dL (0.6-1.0); GFR 71.5; POTASSIUM 3.6 mmol/L (3.5-5.1)
[2021-03-23 12:06] LABS: ALBUMIN 4.3 g/dL (3.4-5.0); ALBUMIN/GLOBULIN RATIO 1.4 (1.0-1.7); MAGNESIUM 1.8 mg/dL (1.8-2.4); TOTAL BILIRUBIN 0.4 mg/dL (0.2-1.0); TOTAL PROTEIN 7.3 g/dL (6.4-8.2)
[2021-03-23] MEDS ORDERED: IOHEXOL 300 MG/ML 100ML VIAL. IV ONE (12:15)
[2021-03-23] MEDS ORDERED: CONTRAST GIVEN. MC PRN (12:15)
--- NOTE | 2021-03-23 12:28 | RAD ---
INDICATION: Reason: chest burning and tightness / Spl. Instructions: / History: COMPARISON: February 21, 2021 FINDINGS: Single view of chest obtained. Cardiomediastinal silhouette is again prominent in size with calcific atherosclerosis. Prominent righ t pulmonary hilum again seen. Mild interstitial prominence bilaterally without well-defined focal air space consolidation. This is similar to prior. IMPRESSION: * Similar examination compared to prior with repeat demonstration of enlarged cardiomediastinal silh ouette as well as prominent pulmonary blair. No new region of consolidation is seen Electronically signed by: Willy Farrell MD (03/23/2021 12:25 PM) [id number]
--- NOTE | 2021-03-23 13:36 | RAD ---
INDICATION: Reason: RUQ abd pain, epigastric TTP / Spl. Instructions: IV OMNI 300 75 MLS / History: . COMPARISON: None. TECHNIQUE: Axial CT images obtained through the abdomen and pelvis with contrast. One or more of the following individualized dose reduction techniques were utilized for this examinat ion: 1. Automated exposure control; 2. Adjustment of the mA and/or kV according to patient size; 3 . Use of iterative reconstruction technique. FINDINGS: Coronary artery calcific atherosclerosis as well as atherosclerotic disease throughout the vasculatur e. Liver is low density which can be seen with fatty infiltration. No peripancreatic fluid collection. There is some motion which limits. Spleen unremarkable. No hydronephrosis. Urinary bladder is partially distended. Lobulated appearance of the uterus with calcification within. Could be from fibroids. Colonic diverticulosis. No periappendiceal inflammatory changes. No dilated loops of bowel to suggest obstruction. Degenerative changes throughout the spine with mild scoliotic curvature. IMPRESSION: * No evidence of bowel obstruction or appendicitis. * Severe calcific atherosclerosis. * Liver is low density which is nonspecific but can be seen with fatty infiltration. * Suspected fibroid uterus Electronically signed by: Willy Farrell MD (03/23/2021 1:34 PM) [id number]
--- NOTE | 2021-03-23 14:05 | ED.ADGEN ---
Past Medical History Past Medical History: Arthritis, COPD, Diabetes-Type II, Fibromyalgia, High Cholesterol, Hypertension, Renal Failure, TIA, Other Additional Past Medical Histor: sleep apnea; resp. arrest, OSTEO & RHEUMATOID ARTHRITIS,PSORIASIS Past Surgical History: Tubal ligation, Other Additional Past Surgical Histo: breast reduction Smoking Status: Former Smoker Alcohol Use: Sober Drug Use: None General Adult EDM: Chief Complaint: ABDOMINAL PAIN HPI: HPI: Patient is a 65 year old female, brought to the emergency department by her family with complaints of right upper quadrant abdominal pain, epigastric pain, and nausea for the last 3 days. Patient states she did not take her medications this morning, she takes 3 different medications for her blood pressure. Patient denies any chest pain, palpitations, diarrhea, fever, body aches, headache, or fatigue. She states that she has a chronic cough and is always short of breath, she wears oxygen at 2 L via nasal cannula at all times. Patient denies any increased work of breathing, change in her cough, or concerns of COVID-19. Patient states that she has not vomited she has only had dry heaves. She denies any increase in swelling of her extremities. She currently rates her upper abdominal pain a 9 out of 10 on pain scale and describes it as a constant sharp pain. She denies any radiation of the pain to her back. Patient denies any alleviating factors the pain is worse with dry heaving. Review of Systems: Review of Systems: Complete ROS is negative unless otherwise noted in HPI. Current Medications: Current Medications Medications (Trade) Dose Ordered Sig/Jam Start Time Stop Time Status Last Admin Dose Admin Amlodipine Besylate (Norvasc) 10 mg 1X ONCE 03/23/21 15:15 03/23/21 15:21 DC 03/23/21 15:28 10 MG Famotidine (Pepcid Vial) 20 mg 1X ONCE 03/23/21 11:30 03/23/21 11:31 DC 03/23/21 12:04 20 MG Hydralazine HCl (Apresoline Inj) 10 mg 1X ONCE 03/23/21 14:00 03/23/21 14:02 DC Hydrochlorothiazide (Microzide) 25 mg 1X ONCE 03/23/21 15:15 03/23/21 15:21 DC 03/23/21 15:31 25 MG Info (CONTRAST GIVEN -- Rx MONITORING) 1 each PRN DAILY PRN 03/23/21 12:15 03/23/21 15:50 DC Iohexol (Omnipaque 300 Mg/ml) 75 ml 1X ONCE 03/23/21 12:15 03/23/21 12:16 DC 03/23/21 12:08 75 ML Lisinopril (Prinivil) 20 mg 1X ONCE 03/23/21 15:15 03/23/21 15:21 DC 03/23/21 15:27 20 MG Ondansetron HCl (Zofran) 4 mg 1X ONCE 03/23/21 11:30 03/23/21 11:31 DC 03/23/21 12:03 4 MG Allergies: Allergies: Allergies Coded Allergies Type Severity Reaction Last Updated Verified Penicillins Allergy Intermediate 09/24/19 Yes aspirin Allergy Intermediate Itching 12/01/14 Yes erythromycin base Allergy Intermediate 11/28/14 Yes levofloxacin Allergy Intermediate HIVES 09/25/19 Yes mushroom Allergy Intermediate 09/24/19 Yes propoxyphene Allergy Intermediate 12/03/14 Yes Physical Exam: PE: See Above Constitutional: Well developed, well nourished, no acute distress, non-toxic appearance, obese. [] HENT: Normocephalic, atraumatic, bilateral external ears normal, nose normal. [] Eyes: PERRLA, EOMI, conjunctiva normal, no discharge. [] Neck: Normal range of motion, no stridor. [] Cardiovascular:Heart rate regular rhythm Lungs & Thorax: Respirations even and unlabored, no retractions, no respiratory distress, lung sounds diminished in bases otherwise clear Abdomen: soft, epigastric and right upper quadrant tenderness to palpation, no rebound tenderness, no guarding, no palpable mass, no pulsatile mass, bowel sounds active in all quadrants, Skin: Warm, dry, no erythema, no rash. [] Extremities: No cyanosis, ROM intact, no edema. [] Neurologic: Alert and oriented X 3, normal motor, normal sensory, no focal deficits noted. [] Psychologic: Affect normal, judgement normal, mood normal. [] Current Patient Data: Labs: Laboratory Tests Test 03/23/21 11:01 03/23/21 11:33 Urine Collection Type Void Urine Color Yellow Urine Clarity Clear Urine pH 7.5 (<5.0-8.0) Urine Specific Dalton 1.015 (1.000-1.030) Urine Protein >=300 mg/dL (NEG-TRACE) Urine Glucose (UA) Negative mg/dL (NEG) Urine Ketones (Stick) Trace mg/dL (NEG) Urine Blood Negative (NEG) Urine Nitrite Negative (NEG) Urine Bilirubin Negative (NEG) Urine Urobilinogen Dipstick 1.0 mg/dL (0.2 mg/dL) Urine Leukocyte Esterase Negative (NEG) Urine RBC 0 /HPF (0-2) Urine WBC 1-4 /HPF (0-4) Urine Squamous Epithelial Cells Mod /LPF Urine Bacteria 0 /HPF (0-FEW) White Blood Count 7.2 x10^3/uL (4.0-11.0) Red Blood Count 4.24 x10^6/uL (3.50-5.40) Hemoglobin 11.8 g/dL (12.0-15.5) L Hematocrit 35.0 % (36.0-47.0) L Mean Corpuscular Volume 83 fL (79-100) Mean Corpuscular Hemoglobin 28 pg (25-35) Mean Corpuscular Hemoglobin Concent 34 g/dL (31-37) Red Cell Distribution Width 15.8 % (11.5-14.5) H Platelet Count 263 x10^3/uL (140-400) Neutrophils (%) (Auto) 71 % (31-73) Lymphocytes (%) (Auto) 22 % (24-48) L Monocytes (%) (Auto) 6 % (0-9) Eosinophils (%) (Auto) 1 % (0-3) Basophils (%) (Auto) 0 % (0-3) Neutrophils # (Auto) 5.1 x10^3/uL (1.8-7.7) Lymphocytes # (Auto) 1.6 x10^3/uL (1.0-4.8) Monocytes # (Auto) 0.4 x10^3/uL (0.0-1.1) Eosinophils # (Auto) 0.1 x10^3/uL (0.0-0.7) Basophils # (Auto) 0.0 x10^3/uL (0.0-0.2) Sodium Level 142 mmol/L (136-145) Potassium Level 3.6 mmol/L (3.5-5.1) Chloride Level 101 mmol/L (98-107) Carbon Dioxide Level 28 mmol/L (21-32) Anion Gap 13 (6-14) Blood Urea Nitrogen 14 mg/dL (7-20) Creatinine 0.8 mg/dL (0.6-1.0) Estimated GFR (Cockcroft-Gault) 71.5 BUN/Creatinine Ratio 18 (6-20) Glucose Level 154 mg/dL (70-99) H Calcium Level 9.4 mg/dL (8.5-10.1) Magnesium Level 1.8 mg/dL (1.8-2.4) Total Bilirubin 0.4 mg/dL (0.2-1.0) Aspartate Amino Transferase (AST) 17 U/L (15-37) Alanine Aminotransferase (ALT) 28 U/L (14-59) Alkaline Phosphatase 54 U/L (46-116) Creatine Kinase 50 U/L (26-192) Troponin I Quantitative < 0.017 ng/mL (0.000-0.055) ZQ-Oen-I-Type Natriuretic Peptide 990 pg/mL (0-124) H Total Protein 7.3 g/dL (6.4-8.2) Albumin 4.3 g/dL (3.4-5.0) Albumin/Globulin Ratio 1.4 (1.0-1.7) Lipase 196 U/L (73-393) Laboratory Tests 03/23/21 11:33 Laboratory Tests 03/23/21 11:33 Vital Signs: Vital Signs Date Time Temp Pulse Resp B/P (MAP) Pulse Ox O2 Delivery O2 Flow Rate FiO2 03/23/21 15:28 97 175/74 03/23/21 15:25 22 97 Nasal Cannula 2.5 03/23/21 10:59 98.3 98.3 EKG: EK-SR rate 90, leftward axis, no STEMI read by Dr. Saenz. [] Heart Score: C/O Chest Pain: No Risk Scores: Score 0 - 3: 2.5% MACE over next 6 weeks - Discharge Home Score 4 - 6: 20.3% MACE over next 6 weeks - Admit for Clinical Observation Score 7 - 10: 72.7% MACE over next 6 weeks - Early Invasive Strategies Radiology/Procedures: Radiology/Procedures: PROCEDURE: CHEST AP ONLY INDICATION: Reason: chest burning and tightness / Spl. Instructions: / History: COMPARISON: February 21, 2021 FINDINGS: Single view of chest obtained. Cardiomediastinal silhouette is again prominent in size with calcific atherosclerosis. Prominent right pulmonary hilum again seen. Mild interstitial prominence bilaterally without well-defined focal airspace consolidation. This is similar to prior. IMPRESSION: * Similar examination compared to prior with repeat demonstration of enlarged cardiomediastinal silhouette as well as prominent pulmonary blair. No new region of consolidation is seen Electronically signed by: Willy Farrell MD (03/23/2021 12:25 PM) [id number] PROCEDURE: CT ABD PELV W/ IV CONTRST ONLY INDICATION: Reason: RUQ abd pain, epigastric TTP / Spl. Instructions: IV OMNI 300 75 MLS / History: . COMPARISON: None. TECHNIQUE: Axial CT images obtained through the abdomen and pelvis with contrast. One or more of the following individualized dose reduction techniques were utilized for this examination: 1. Automated exposure control; 2. Adjustment of the mA and/or kV according to patient size; 3. Use of iterative reconstruction technique. FINDINGS: Coronary artery calcific atherosclerosis as well as atherosclerotic disease throughout the vasculature. Liver is low density which can be seen with fatty infiltration. No peripancreatic fluid collection. There is some motion which limits. Spleen unremarkable. No hydronephrosis. Urinary bladder is partially distended. Lobulated appearance of the uterus with calcification within. Could be from fibroids. Colonic diverticulosis. No periappendiceal inflammatory changes. No dilated loops of bowel to suggest obstruction. Degenerative changes throughout the spine with mild scoliotic curvature. IMPRESSION: * No evidence of bowel obstruction or appendicitis. * Severe calcific atherosclerosis. * Liver is low density which is nonspecific but can be seen with fatty infiltration. * Suspected fibroid uterus Electronically signed by: Willy Farrell MD (03/23/2021 1:34 PM) [id number] [] Course & Med Decision Making: Course & Med Decision Making Pertinent Labs and Imaging studies reviewed. (See chart for details) [id number] spoke with patient's primary care Dr. Iza Estrada about the patient and her visit in the ER. Patient presented with a chief complaint of RUQ and epigastric abdominal pain with nausea for the last 3 days she also reported increased shortness of breath. Patient's chest x-ray was unchanged from her previous exam. Her CBC revealed a mild anemia with hemoglobin 11.8, hematocrit 35.0; CMP revealed a glucose of 154, CK index and troponin were negative, BNP was 990, lipase was not elevated; patient's UA was unremarkable. In the emergency department the patient was hypertensive, she was given 10 mg of labetalol IV her blood pressure decreased to 183/86 at best, currently her blood pressure is 193/106. Per Dr. Estrada give the patient 10 mg of amlodipine, lisinopril 20 mg, and 25 mg of hydrochlorothiazide at this time. Have the patient increase her amlodipine dosage to 10 mg daily. Instruct the patient to call his office in the morning to schedule follow-up appointment for . I discussed the results and the conversation with the Dr. Estrada with the patient. I informed her that she needs to increase her amlodipine to 2 tablets daily and she needs to take her other blood pressure medications as prescribed. She needs to follow-up with Dr. Estrada on for reevaluation, she is to call tomorrow for an appointment. I encouraged her to return to the ER if her symptoms worsened or fever develop. Patient verbalized an understanding of home care, medications, follow-up, and return to ED instructions and was in agreement with the plan of care. [] Kerry Disclaimer: Kerry Disclaimer: This electronic medical record was generated, in whole or in part, using a voice recognition dictation system. Departure Departure Impression: Primary Impression: High blood pressure Additional Impression: Abdominal pain Disposition: HOME / SELF CARE / HOMELESS Condition: STABLE Referrals: IZA ESTRADA MD (PCP) Patient Instructions: Abdominal Pain (Nonspecific), Hypertension, [id number] Additional Instructions: Take your home blood pressure medications as prescribed. Dr. Estrada wants you to increase your amlodipine to 10 mg a day, so to start taking 2 tablets instead of 1. Call his office to schedule follow-up appointment . Return to the ER if symptoms worsen or fever develops. Problem Qualifiers Primary Impression: High blood pressure Hypertension type: essential hypertension Qualified Codes: I10 - Essential (primary) hypertension Additional Impression: Abdominal pain Abdominal location: upper abdomen, unspecified Qualified Codes: R10.10 - Upper abdominal pain, unspecified REINA MANCILLA TECHNICAL TRANSLATOR March 23, 2021 14:05
[2021-03-23] MEDS ORDERED: amLODIPine BESYLATE 5 MG TABLET PO ONE (15:15)
[2021-03-23] MEDS ORDERED: LISINOPRIL 10 MG TABLET PO ONE (15:15)
[2021-03-23] MEDS ORDERED: hydroCHLOROthiazide 12.5 MG CAPSULE PO ONE (15:15)
[2021-03-23 15:28] VITALS: BP 175/74
== END 2021-03-23 15:45 | disposition home or self-care (01) ==
LOC: ER 10:45
DX: I12.9 Hypertensive chronic kidney disease with stage 1 through stage 4 chronic kidney disease, or unspecified chronic kidney disease (principal); E11.22 Type 2 diabetes mellitus with diabetic chronic kidney disease; N18.9 Chronic kidney disease, unspecified; R10.13 Epigastric pain; E78.00 Pure hypercholesterolemia, unspecified; Z86.73 Personal history of transient ischemic attack (TIA), and cerebral infarction without residual deficits; Z87.891 Personal history of nicotine dependence; Z88.0 Allergy status to penicillin; Z88.1 Allergy status to other antibiotic agents; Z88.6 Allergy status to analgesic agent; Z88.8 Allergy status to other drugs, medicaments and biological substances; Z91.018 Allergy to other foods
CPT/HCPCS: 36415; 71045; 74177; 80053; 81001; 82550; 83690; 83735; 83880; 84484; 85025; 93005; 96374; 96375; 99285; J0360; J2405; J3490; Q9967

== ENCOUNTER 2022-03-09 10:52 | Inpatient (IN) | payer MEDICARE, OTHER ==
[~2022-03-09] VITALS: Ht 154.9 cm; Wt 108.0 kg
[~2022-03-09 10:52] MED LIST changes: -DULO60CA6 PO; +DULO60CA7 PO; -LISI1TAB20 PO; +LISI1TAB39 PO; +POTA-121 PO; -POTA20TA4 PO; +TIZA-75 PO; -TIZA4TAB2 PO
[2022-03-09] MEDS ORDERED: diphenhydrAMINE 50 MG/ML VIAL IVP ONE (12:00)
[2022-03-09] MEDS ORDERED: IV NORMAL SALINE 1000ML BAG 1,000 ML IV ONE (12:00)
[2022-03-09] MEDS ORDERED: PROCHLORPERAZINE 10 MG/2 ML VIAL. IV ONE (12:00)
--- NOTE | 2022-03-09 12:06 | PHYS DOC ---
Past Medical History Past Medical History: Arthritis, COPD, Diabetes-Type II, Fibromyalgia, High Cholesterol, Hypertension, Renal Failure, TIA, Other Additional Past Medical Histor: sleep apnea; resp. arrest, OSTEO & RHEUMATOID ARTHRITIS,PSORIASIS Past Surgical History: Tubal ligation, Other Additional Past Surgical Histo: breast reduction Smoking Status: Current Every Day Smoker Alcohol Use: None Drug Use: None General Adult EDM: Chief Complaint: BLOOD SUGAR PROBLEM HPI: HPI: Patient is a 66-year-old female who presents today with headache, feeling cold, and overall generalized fatigue. Patient states that over the last 2 days she has had increased fatigue, chills, and headache that has worsened, she said she just feels horrible all over and she presents today for further evaluation and management. Patient does have a past medical history of COPD for which she is oxygen dependent at 2 L per nasal cannula at home, she also has a history of RYANNE as well as diabetes, she states that today she has had overall body pains, fatigue, chills and nausea and vomiting. Patient states that her blood sugar this morning was 132. Patient states she is she has had urinary frequency but no pain with urination, she has no abdominal pain with her nausea and vomiting but she does state that she has heartburn. Review of Systems: Review of Systems: Constitutional: Denies fever or chills. [] Eyes: Denies change in visual acuity. [] HENT: Denies nasal congestion or sore throat. [] Respiratory: Denies cough or shortness of breath. [] Cardiovascular: Denies chest pain or edema. [] GI: Denies abdominal pain, nausea, vomiting, bloody stools or diarrhea. [] : Denies dysuria. [] Musculoskeletal: Denies back pain or joint pain. [] Integument: Denies rash. [] Neurologic: Denies headache, focal weakness or sensory changes. [] Endocrine: Denies polyuria or polydipsia. [] Lymphatic: Denies swollen glands. [] Psychiatric: Denies depression or anxiety. [] Heart Score: C/O Chest Pain: No Risk Factors: Risk Factors: DM, Current or recent (<one month) smoker, HTN, HLP, family history of CAD, obesity. Risk Scores: Score 0 - 3: 2.5% MACE over next 6 weeks - Discharge Home Score 4 - 6: 20.3% MACE over next 6 weeks - Admit for Clinical Observation Score 7 - 10: 72.7% MACE over next 6 weeks - Early Invasive Strategies Current Medications: Current Medications Medications (Trade) Dose Ordered Sig/Jam Start Time Stop Time Status Last Admin Dose Admin Diphenhydramine HCl (Benadryl) 25 mg 1X ONCE 03/09/22 12:00 03/09/22 12:03 DC Fentanyl Citrate (Fentanyl 2ml Vial) 50 mcg 1X ONCE 03/09/22 12:15 03/09/22 12:16 UNV Prochlorperazine Edisylate (Compazine) 10 mg 1X ONCE 03/09/22 12:00 03/09/22 12:03 DC Sodium Chloride 1,000 ml @ 999 mls/hr 1X ONCE 03/09/22 12:00 03/09/22 13:00 Allergies: Allergies: Allergies Coded Allergies Type Severity Reaction Last Updated Verified Penicillins Allergy Intermediate 09/24/19 Yes aspirin Allergy Intermediate Itching 12/01/14 Yes erythromycin base Allergy Intermediate 11/28/14 Yes levofloxacin Allergy Intermediate HIVES 09/25/19 Yes mushroom Allergy Intermediate 09/24/19 Yes propoxyphene Allergy Intermediate 12/03/14 Yes Physical Exam: PE: Constitutional: Well developed, well nourished, no acute distress, non-toxic appearance. [] HENT: Normocephalic, atraumatic, bilateral external ears normal, oropharynx moist, no oral exudates, nose normal. [] Eyes: PERRLA, EOMI, conjunctiva normal, no discharge. [] Neck: Normal range of motion, no tenderness, supple, no stridor. [] Cardiovascular:Heart rate regular rhythm, no murmur [] Lungs & Thorax: Bilateral breath sounds clear to auscultation [] Abdomen: Bowel sounds normal, soft, no tenderness, no masses, no pulsatile masses. [] Skin: Warm, dry, no erythema, no rash. [] Back: No tenderness, no CVA tenderness. [] Extremities: No tenderness, no cyanosis, no clubbing, ROM intact, no edema. [] Neurologic: Alert and oriented X 3, normal motor function, normal sensory function, no focal deficits noted. [] Psychologic: Affect normal, judgement normal, mood normal. [] Current Patient Data: Labs: Laboratory Tests Test 03/09/22 11:22 03/09/22 12:46 White Blood Count 8.4 x10^3/uL Red Blood Count 4.18 x10^6/uL Hemoglobin 11.1 g/dL Hematocrit 34.6 % Mean Corpuscular Volume 83 fL Mean Corpuscular Hemoglobin 27 pg Mean Corpuscular Hemoglobin Concent 32 g/dL Red Cell Distribution Width 16.1 % Platelet Count 238 x10^3/uL Neutrophils (%) (Auto) 73 % Lymphocytes (%) (Auto) 19 % Monocytes (%) (Auto) 5 % Eosinophils (%) (Auto) 2 % Basophils (%) (Auto) 0 % Neutrophils # (Auto) 6.1 x10^3/uL Lymphocytes # (Auto) 1.6 x10^3/uL Monocytes # (Auto) 0.4 x10^3/uL Eosinophils # (Auto) 0.2 x10^3/uL Basophils # (Auto) 0.0 x10^3/uL Sodium Level 138 mmol/L Potassium Level 4.5 mmol/L Chloride Level 99 mmol/L Carbon Dioxide Level 30 mmol/L Anion Gap 9 Blood Urea Nitrogen 16 mg/dL Creatinine 1.1 mg/dL Estimated GFR (Cockcroft-Gault) 49.4 BUN/Creatinine Ratio 15 Glucose Level 115 mg/dL Calcium Level 9.1 mg/dL Total Bilirubin 0.4 mg/dL Aspartate Amino Transf (AST/SGOT) 21 U/L Alanine Aminotransferase (ALT/SGPT) 27 U/L Alkaline Phosphatase 74 U/L Troponin I High Sensitivity 10 ng/L ZV-Xyi-E-Type Natriuretic Peptide 309 pg/mL Total Protein 7.4 g/dL Albumin 3.4 g/dL Albumin/Globulin Ratio 0.9 Lactic Acid Level 4.3 mmol/L Influenza Type A Antigen Negative Influenza Type B Antigen Negative SARS-CoV-2 Antigen (Rapid) Negative Current Medications Medications (Trade) Dose Ordered Sig/Jam Route PRN Reason Start Time Stop Time Status Last Admin Dose Admin Sodium Chloride 1,000 ml @ 999 mls/hr 1X ONCE IV 03/09/22 12:00 03/09/22 13:00 DC 03/09/22 12:23 Diphenhydramine HCl (Benadryl) 25 mg 1X ONCE IVP 03/09/22 12:00 03/09/22 12:03 DC 03/09/22 12:23 Prochlorperazine Edisylate (Compazine) 10 mg 1X ONCE IV 03/09/22 12:00 03/09/22 12:08 DC Fentanyl Citrate (Fentanyl 2ml Vial) 50 mcg 1X ONCE IVP 03/09/22 12:15 03/09/22 12:16 DC 03/09/22 12:23 Ondansetron HCl (Zofran) 4 mg 1X ONCE IVP 03/09/22 12:15 03/09/22 12:19 DC 03/09/22 12:23 Famotidine (Pepcid Vial) 20 mg 1X ONCE IVP 03/09/22 12:15 03/09/22 12:19 DC 03/09/22 12:23 Doxycycline Hyclate 100 mg/ Dextrose 100 ml @ 50 mls/hr 1X ONCE IV 03/09/22 13:30 03/09/22 15:29 03/09/22 13:19 Ceftriaxone Sodium (Rocephin) 1 gm 1X ONCE IVP 03/09/22 13:30 03/09/22 13:31 DC 03/09/22 13:19 Vital Signs: Vital Signs Date Time Temp Pulse Resp B/P (MAP) Pulse Ox O2 Delivery O2 Flow Rate FiO2 03/09/22 13:11 80 16 174/79 (110) 95 Nasal Cannula 2.0 03/09/22 12:23 20 03/09/22 12:12 76 16 210/100 (136) 96 Nasal Cannula 2.0 03/09/22 11:25 98.9 69 15 195/81 (119) 95 Nasal Cannula 2.0 98.9 Vital Signs Date Time Temp Pulse Resp B/P (MAP) Pulse Ox O2 Delivery O2 Flow Rate FiO2 03/09/22 11:25 98.9 69 15 195/81 (119) 95 Nasal Cannula 2.0 98.9 EKG: EKG: EKG done at [address] Carroll at 1130 showed sinus rhythm with no ectopy at a rate of 68 with a RI interval of 172 ms with a QTC of 455 ms no STEMI [] Radiology/Procedures: Radiology/Procedures: REASON: HEADACHE PROCEDURE: CT HEAD WO CONTRAST EXAM: CT HEAD WITHOUT CONTRAST. HISTORY: Headache. TECHNIQUE: Computed tomography of the head was performed without intravenous contrast. One or more of the following individualized dose reduction techniques were utilized for this examination: 1. Automated exposure control. 2. Adjustment of the mA and/or kV according to patient size. 3. Use of iterative reconstruction technique. COMPARISON: 04/26/2015. FINDINGS: There is no intracranial hemorrhage. Hypoattenuation within the white matter indicates moderate to severe chronic microangiopathic change. Prominence of the lateral ventricles and hemispheric sulci indicates mild atrophy. The visualized paranasal sinuses appear clear. There are changes of bilateral cataract surgery. The temporal bones are unremarkable. The calvarium reveals no suspicious lesions. There are atherosclerotic calcifications of the internal carotid and vertebral arteries. IMPRESSION: 1. No acute intracranial findings. 2. Mild atrophy and moderate to severe chronic microangiopathic white matter change. Electronically signed by: Jamila Sandoval MD (03/09/2022 12:55 PM) [id number][] REASON: COUGH PROCEDURE: PORTABLE CHEST 1V EXAM: CHEST ONE VIEW. HISTORY: Cough. COMPARISON: 03/23/2021. FINDINGS: A frontal view of the chest is obtained. There is a mild airspace opacity in the right base. There is no pneumothorax or pleural effusion. The heart is mildly enlarged. There are atherosclerotic calcifications of the aorta. Bilateral glenohumeral osteoarthritis is moderate to severe. IMPRESSION: 1. Correlate for mild right basilar infiltrate. Electronically signed by: Jamila Sandoval MD (03/09/2022 12:40 PM) [id number] Course & Med Decision Making: Course & Med Decision Making Pertinent Labs and Imaging studies reviewed. (See chart for details) [address] Estrada regarding this patient, did inform him that his chest x- ray looks like they have pneumonia in the right lower lobe, her lactic acid level is 4.3, he is agreeable to admitting the patient he also has asked that we consult pulmonary for further evaluation and management of her pneumonia with her COPD. [address] Carranza with pulmonary and he is agreeable to seeing the patient in consultation. Kerry Disclaimer: Kerry Disclaimer: This electronic medical record was generated, in whole or in part, using a voice recognition dictation system. Departure Departure Impression: Primary Impression: Pneumonia Qualified Codes: J18.9 - Pneumonia, unspecified organism Disposition: ADMITTED INPATIENT Admitting Physician: Iza Estrada Condition: STABLE Referrals: IZA ESTRADA MD (PCP) ANNMARIE MCGHEE APRN Mar 09, 2022 12:06
[2022-03-09] MEDS ORDERED: fentaNYL PF VIAL 100 MCG/2 ML VIAL IVP ONE (12:15)
[2022-03-09] MEDS ORDERED: FAMOTIDINE 20 MG/2 ML VIAL IVP ONE (12:15)
[2022-03-09] MEDS ORDERED: ONDANSETRON PF 4 MG/2 ML VIAL. IVP ONE (12:15)
[2022-03-09 12:27] LABS: BASO % 0 % (0-3); EOS # 0.2 x10^3/uL (0.0-0.7); EOS % 2 % (0-3); HEMATOCRIT 34.6 % (36.0-47.0); HEMOGLOBIN 11.1 g/dL (12.0-15.5); LYMPH # 1.6 x10^3/uL (1.0-4.8); LYMPH % 19 % (24-48); MEAN CORPUSCULAR HEMOGLOBIN 27 pg (25-35); MEAN CORPUSCULAR HGB CONC 32 g/dL (31-37); MEAN CORPUSCULAR VOLUME 83 fL (79-100); MONO # 0.4 x10^3/uL (0.0-1.1); MONO % 5 % (0-9); NEUT # 6.1 x10^3/uL (1.8-7.7); NEUT % 73 % (31-73); PLATELET COUNT 238 x10^3/uL (140-400); RED BLOOD COUNT 4.18 x10^6/uL (3.50-5.40); RED CELL DISTRIBUTION WIDTH 16.1 % (11.5-14.5); WHITE BLOOD COUNT 8.4 x10^3/uL (4.0-11.0)
--- NOTE | 2022-03-09 12:42 | RAD ---
EXAM: CHEST ONE VIEW. HISTORY: Cough. COMPARISON: 03/23/2021. FINDINGS: A frontal view of the chest is obtained. There is a mild airspace opacity in the right base. There is no pneumothorax or pleural effusion. The heart is mildly enlarged. There are atherosclerotic calcifications of the aorta. Bilateral glenohume ral osteoarthritis is moderate to severe. IMPRESSION: 1. Correlate for mild right basilar infiltrate. Electronically signed by: Jamila Sandoval MD (03/09/2022 12:40 PM) [id number]
[2022-03-09 12:45] LABS: CALCIUM 9.1 mg/dL (8.5-10.1); CREATININE 1.1 mg/dL (0.6-1.0); GFR 49.4; POTASSIUM 4.5 mmol/L (3.5-5.1)
[2022-03-09 12:53] LABS: ALBUMIN 3.4 g/dL (3.4-5.0); ALBUMIN/GLOBULIN RATIO 0.9 (1.0-1.7); TOTAL BILIRUBIN 0.4 mg/dL (0.2-1.0); TOTAL PROTEIN 7.4 g/dL (6.4-8.2)
--- NOTE | 2022-03-09 12:58 | RAD ---
EXAM: CT HEAD WITHOUT CONTRAST. HISTORY: Headache. TECHNIQUE: Computed tomography of the head was performed without intravenous contrast. One or more of the following individualized dose reduction techniques were utilized for this examination: 1. Automated exposure control. 2. Adjustment of the mA and/or kV according to patient size. 3. Use of iterative reconstruction technique. COMPARISON: 04/26/2015. FINDINGS: There is no intracranial hemorrhage. Hypoattenuation within the white matter indicates mode rate to severe chronic microangiopathic change. Prominence of the lateral ventricles and hemispheric sulci indicates mild atrophy. The visualized paranasal sinuses appear clear. There are changes of bilateral cataract surgery. The t emporal bones are unremarkable. The calvarium reveals no suspicious lesions. There are atheroscleroti c calcifications of the internal carotid and vertebral arteries. IMPRESSION: 1. No acute intracranial findings. 2. Mild atrophy and moderate to severe chronic microangiopathic white matter change. Electronically signed by: Jamila Sandoval MD (03/09/2022 12:55 PM) [id number]
[2022-03-09 13:24] LABS: INFLUENZA A PATIENT NEGATIVE (NEGATIVE); INFLUENZA B PATIENT NEGATIVE (NEGATIVE)
[2022-03-09] MEDS ORDERED: cefTRIAXone IV Push 1 GM VIAL. IVP ONE (13:30)
[2022-03-09] MEDS ORDERED: DOXYCYCLINE HYCLATE 100 MG in IV DEXTROSE 5% 100ML 100 ML IV ONE (13:30)
[2022-03-09] MEDS ORDERED: methylPREDNISolone SOD SUCC PF 125 MG/2 ML VIAL. IV ONE (14:30)
--- NOTE | 2022-03-09 16:00 | NUR ---
Arrived to unit by w/c. Stop by the bathroom and voided. Ambulated to the bed with unsteady gait . States she uses a cane or walker at home most of the time. Oriented to room and controls . Instructed pt not to get out bed without assistance. Verbalized understanding. Bed alarm placed. No c/o at this time. Will call to get orders from Dr. Estrada. Cont. monitor.
[2022-03-09 16:09] VITALS: BP 185/87
[2022-03-09] MEDS ORDERED: ACETAMINOPHEN 325 MG TABLET. PO PRN (16:30)
[2022-03-09] MEDS ORDERED: ACETAMINOPHEN 500 MG TABLET PO PRN (17:45)
[2022-03-09] MEDS: metFORMIN 500 MG TABLET PO SCH (18:00)
[2022-03-09] MEDS: CARVEDILOL 12.5 MG TABLET. PO SCH (18:00)
[2022-03-09] MEDS: cefTRIAXone IV Push 2 GM VIAL. IVP SCH (18:00)
--- NOTE | 2022-03-09 18:18 | PDOC ---
Provider Note Date of Service: DATE: 03/09/22 TIME: 18:17 Provider Note H&P dictated #[id number] Justifications for Admission Other Justification IZA MUNSON MD Mar 09, 2022 18:18
--- NOTE | 2022-03-09 18:48 | HP ---
DATE OF SERVICE: 03/09/2022 ADMIT DATE: 03/09/2022 HISTORY OF PRESENT ILLNESS: This 66-year-old female with history of COPD, chronic respiratory failure, on oxygen by nasal cannula 2 liters per minute at home, rheumatoid arthritis, psoriasis, obstructive sleep apnea, on BiPAP at night, coronary artery disease, history of hepatitis C, hypertension and multiple other medical problems with chronic cognitive deficits, presented to the Emergency Room with complaints of headaches, feeling cold and fatigue. Symptoms have been there for two days. She has also been coughing and mostly currently she is coughing without any expectoration and this is dry cough. The patient tells me that she had fainted and because of that, the family brought her here. No complaints of abdominal pain, nausea, vomiting. In the Emergency Room, the patient was evaluated. Influenzae A and B and SARS-CoV-2 rapid antigen tests were negative. However, her lactic acid level was 4.3. Sodium 138, potassium 4.5, BUN 16, creatinine 1.1, glucose 115. BNP 309. Troponin 10, AST 21, ALT 27. WBC count 8.4, hemoglobin 11.1. CT scan of head was negative for any acute changes. Has mild atrophy and moderate to severe chronic microangiopathic white matter change. Chest x-ray showed mild right basilar infiltrate. Because of the lactic acidosis, likely sepsis and pneumonia, the patient was admitted for further evaluation and management. SYSTEMS REVIEW: As noted in the history of present illness. Other systems reviewed and are negative. The patient is not a good historian. She noted that she has a wound in the right groin. It is covered by dressing. I have reviewed the pictures. PAST MEDICAL HISTORY: The patient has a history of chronic respiratory failure. She has a history of COPD with history of exacerbation in the last admission in 11/2019, history of E. coli UTI, diabetes mellitus type 2, obstructive sleep apnea, on BiPAP at night, coronary artery disease, hypertension, hyperlipidemia, history of hepatitis C, anxiety, depression, gastroesophageal reflux disease, chronic cognitive deficits, history of overusing tramadol and problems with respiratory failure in the past, CKD 2, diabetes type 2 with neuropathy, history of sepsis. She also has gastroesophageal reflux disease, hyperlipidemia, and history of frequent falls. SURGICAL HISTORY: Includes tubal ligation and arthrocentesis of the left knee joint and right knee joint. FAMILY HISTORY: Sister had cancer. Her father had lung cancer. Mother had lung and liver cancer, hypertension and diabetes. Family history of cerebral aneurysm. SOCIAL HISTORY: Past history of smoking. No history of alcoholism or drug abuse. MEDICATIONS: Reviewed and reconciled. ALLERGIES: THE PATIENT IS ALLERGIC TO PENICILLIN, ASPIRIN, ERYTHROMYCIN, PROPOXYPHENE AND MUSHROOMS. PHYSICAL EXAMINATION: VITAL SIGNS: Temperature 98.9, pulse 69 per minute, respirations 15 per minute, blood pressure 195/81 mmHg. Subsequently, it went to 210/100 mmHg. GENERAL: The patient is alert, forgetful and in mild respiratory distress. She is on oxygen by nasal cannula at 2 liters per minute. She is coughing a lot. EYES: Pupils reactive to light. Conjunctivae pale. Sclerae muddy. HENT: Partial exam, throat congested. NECK: Supple. JVP normal. No thyromegaly. Trachea midline. LUNGS: Decreased breath sounds at bases with occasional rhonchi and wheezes. CARDIOVASCULAR SYSTEM: S1, S2, regular. ABDOMEN: Soft, nontender, abdomen is obese. No guarding. No rigidity. Bowel sounds present. EXTREMITIES: No edema, no cyanosis, no calf tenderness. The patient has a soft tissue elongated structure in the right groin with dressing in place. No bleeding noted. CENTRAL NERVOUS SYSTEM: Forgetful. Moves all extremities. Generalized weakness. LABORATORY FINDINGS: As noted earlier. IMPRESSION: 1. Sepsis. 2. Acute on chronic respiratory failure. 3. Pneumonia. 4. Diabetes mellitus type 2. 5. Rheumatoid arthritis, on Plaquenil. 6. Psoriasis, recently started on Otezla. 7. History of narcotic overuse. 8. Coronary artery disease. 9. Hypertension. 10. Hypertensive crisis. 11. Chronic kidney disease 2. 12. Hyperlipidemia. 13. History of hepatitis C. 14. Anxiety. 15. Depression. 17. Exacerbation of chronic obstructive pulmonary disease. 18. Gastroesophageal reflux disease. 19. Chronic cognitive deficits. 20. Physical deconditioning. PLAN: 1. Acute hypoxic respiratory failure and pneumonia. Continue IV Rocephin and doxycycline. Consult Dr. Carranza for pulmonary evaluation and management. 2. Sepsis. Consult Dr. Barger for Infectious Disease evaluation and management. Start IV fluids. Continue IV Rocephin and doxycycline. Follow up urinalysis, urine culture and blood culture and COVID PCR test. 3. Physical deconditioning. Monitor her mental status closely. 4. Chronic pain. I will use tramadol, but carefully and with caution. Also use Tylenol as needed. 5. Sleep apnea, we will need CPAP/BiPAP at night. For details, please refer to the orders. Prognosis of this patient is poor due to her multiple medical problems. DA/MARY DR: Elie TID: [id number]
[2022-03-09] MEDS: BUDESONIDE 0.5 MG/2 ML NEBU. NEB SCH (18:54)
[2022-03-09] MEDS: ALBUTEROL SULFATE 2.5 MG/3 ML NEBU. NEB SCH (18:54)
[2022-03-09 19:00] VITALS: BP 150/91
[2022-03-09] MEDS ORDERED: NON FORMULARY ITEM (Mometasone/Formoterol (Dulera 200 Mcg/5 Mcg Inhaler) 2 PUFF) IH SCH (21:00)
[2022-03-09] MEDS: DICLOFENAC SODIUM 1% TOPICAL GEL 100GM TUBE. TP SCH (21:00)
[2022-03-09] MEDS: ATORVASTATIN CALCIUM 10 MG TABLET. PO SCH (22:03)
[2022-03-09] MEDS: MONTELUKAST SODIUM 10 MG TABLET. PO SCH (22:03)
[2022-03-09] MEDS: HYDROXYCHLOROQUINE 200 MG TABLET PO SCH (22:03)
[2022-03-09] MEDS: DOXYCYCLINE HYCLATE 100 MG TABLET PO SCH (22:03)
[2022-03-09] MEDS: HEPARIN for SUB-Q USE 5,000 UNIT/ML VIAL. SQ SCH (22:10)
[2022-03-09 23:17] VITALS: BP 161/72
[2022-03-10] MEDS: IV NORMAL SALINE 1000ML BAG 1,000 ML IV SCH ×3 (00:58→13:21)
[2022-03-10 03:42] VITALS: BP 130/58
[2022-03-10] MEDS: HEPARIN for SUB-Q USE 5,000 UNIT/ML VIAL. SQ SCH ×3 (06:00→21:13)
[2022-03-10 06:06] LABS: BASO % 0 % (0-3); EOS % 0 % (0-3); HEMATOCRIT 31.7 % (36.0-47.0); HEMOGLOBIN 10.3 g/dL (12.0-15.5); LYMPH % 18 % (24-48); MEAN CORPUSCULAR HEMOGLOBIN 27 pg (25-35); MEAN CORPUSCULAR HGB CONC 33 g/dL (31-37); MEAN CORPUSCULAR VOLUME 82 fL (79-100); MONO # 0.1 x10^3/uL (0.0-1.1); MONO % 2 % (0-9); NEUT # 4.5 x10^3/uL (1.8-7.7); NEUT % 80 % (31-73); PLATELET COUNT 252 x10^3/uL (140-400); RED BLOOD COUNT 3.87 x10^6/uL (3.50-5.40); RED CELL DISTRIBUTION WIDTH 15.7 % (11.5-14.5); WHITE BLOOD COUNT 5.6 x10^3/uL (4.0-11.0)
[2022-03-10 07:00] VITALS: BP 181/89
[2022-03-10 07:01] LABS: ALBUMIN 3.3 g/dL (3.4-5.0); ALBUMIN/GLOBULIN RATIO 0.8 (1.0-1.7); CALCIUM 9.2 mg/dL (8.5-10.1); GFR 55.1; MAGNESIUM 1.9 mg/dL (1.8-2.4); POTASSIUM 4.1 mmol/L (3.5-5.1); TOTAL BILIRUBIN 0.3 mg/dL (0.2-1.0); TOTAL PROTEIN 7.4 g/dL (6.4-8.2)
[2022-03-10] MEDS: INSULIN LISPRO 300 UNITS/3 ML VIAL. SQ SCH ×3 (07:29→17:10)
[2022-03-10] MEDS: ALBUTEROL SULFATE 2.5 MG/3 ML NEBU. NEB SCH ×4 (08:00→20:02)
[2022-03-10] MEDS: BUDESONIDE 0.5 MG/2 ML NEBU. NEB SCH ×2 (08:00→20:01)
[2022-03-10] MEDS ORDERED: PANTOPRAZOLE 40 MG TABLET.DR. PO SCH (08:00)
[2022-03-10] MEDS: DICLOFENAC SODIUM 1% TOPICAL GEL 100GM TUBE. TP SCH ×4 (08:47→21:00)
[2022-03-10] MEDS: OMEGA-3 FATTY ACIDS/FISH OIL 1,000 MG CAPSULE. PO SCH (08:47)
[2022-03-10] MEDS: FLUTICASONE 50MCG/NASAL SPRAY 16GM BOTTLE. NS SCH (08:47)
[2022-03-10] MEDS: CALCIUM CARB/VIT D3 500/200 TABLET. PO SCH (08:48)
[2022-03-10] MEDS: LISINOPRIL 20 MG TABLET PO SCH (08:48)
[2022-03-10] MEDS: PANTOPRAZOLE 40 MG TABLET.DR. PO SCH (08:48)
[2022-03-10] MEDS: DOXYCYCLINE HYCLATE 100 MG TABLET PO SCH ×2 (08:48→21:04)
[2022-03-10] MEDS: CYANOCOBALAMIN (VITAMIN B-12) 1,000 MCG TABLET. PO SCH (08:48)
[2022-03-10] MEDS: HYDROXYCHLOROQUINE 200 MG TABLET PO SCH ×2 (08:48→21:04)
[2022-03-10] MEDS: glipiZIDE 5 MG TABLET PO SCH (08:48)
[2022-03-10] MEDS: DULoxetine HCL 30 MG CAPSULE.DR PO SCH (08:48)
[2022-03-10] MEDS: CARVEDILOL 12.5 MG TABLET. PO SCH ×2 (08:50→16:08)
[2022-03-10] MEDS: metFORMIN 500 MG TABLET PO SCH ×2 (08:50→16:08)
[2022-03-10] MEDS: methylPREDNISolone SOD SUCC PF 125 MG/2 ML VIAL. IV SCH ×2 (08:51→13:21)
[2022-03-10] MEDS ORDERED: hydrALAZINE 20 MG/ML VIAL. IVP PRN (09:30)
--- NOTE | 2022-03-10 09:30 | PDOC ---
IM PROGRESS NOTES- Subjective Subjective c/o pain. has occasional dyspnea. She is a poor historian. Objective Vitals/I&O Vital Signs Date Time Temp Pulse Resp B/P (MAP) Pulse Ox O2 Delivery O2 Flow Rate FiO2 03/10/22 08:50 92 181/89 03/10/22 07:00 98.2 18 96 Nasal Cannula 2.0 98.2 I & O 03/09/22 03/09/22 03/10/22 15:00 23:00 07:00 Intake Total 1100 ml Balance 1100 ml Physical Exam Physical Exam General Appearance - alert and in mild distress Chest - decreased breath sounds at bases Heart - S1 and S2 normal Abdomen - soft, non tender Neurological - alert and forgetful Musculoskeletal - generalized weakness Extremities - trace edema Labs Laboratory Tests Test 03/09/22 11:22 03/09/22 12:46 03/09/22 17:13 03/09/22 17:35 White Blood Count 8.4 x10^3/uL (4.0-11.0) Red Blood Count 4.18 x10^6/uL (3.50-5.40) Hemoglobin 11.1 g/dL (12.0-15.5) L Hematocrit 34.6 % (36.0-47.0) L Mean Corpuscular Volume 83 fL (79-100) Mean Corpuscular Hemoglobin 27 pg (25-35) Mean Corpuscular Hemoglobin Concent 32 g/dL (31-37) Red Cell Distribution Width 16.1 % (11.5-14.5) H Platelet Count 238 x10^3/uL (140-400) Neutrophils (%) (Auto) 73 % (31-73) Lymphocytes (%) (Auto) 19 % (24-48) L Monocytes (%) (Auto) 5 % (0-9) Eosinophils (%) (Auto) 2 % (0-3) Basophils (%) (Auto) 0 % (0-3) Neutrophils # (Auto) 6.1 x10^3/uL (1.8-7.7) Lymphocytes # (Auto) 1.6 x10^3/uL (1.0-4.8) Monocytes # (Auto) 0.4 x10^3/uL (0.0-1.1) Eosinophils # (Auto) 0.2 x10^3/uL (0.0-0.7) Basophils # (Auto) 0.0 x10^3/uL (0.0-0.2) Sodium Level 138 mmol/L (136-145) Potassium Level 4.5 mmol/L (3.5-5.1) Chloride Level 99 mmol/L (98-107) Carbon Dioxide Level 30 mmol/L (21-32) Anion Gap 9 (6-14) Blood Urea Nitrogen 16 mg/dL (7-20) Creatinine 1.1 mg/dL (0.6-1.0) H Estimated GFR (Cockcroft-Gault) 49.4 BUN/Creatinine Ratio 15 (6-20) Glucose Level 115 mg/dL (70-99) H Calcium Level 9.1 mg/dL (8.5-10.1) Total Bilirubin 0.4 mg/dL (0.2-1.0) Aspartate Amino Transferase (AST) 21 U/L (15-37) Alanine Aminotransferase (ALT) 27 U/L (14-59) Alkaline Phosphatase 74 U/L (46-116) Troponin I High Sensitivity 10 ng/L (4-50) VF-Fri-V-Type Natriuretic Peptide 309 pg/mL (0-124) H Total Protein 7.4 g/dL (6.4-8.2) Albumin 3.4 g/dL (3.4-5.0) Albumin/Globulin Ratio 0.9 (1.0-1.7) L Lactic Acid Level 4.3 mmol/L (0.4-2.0) *H 3.5 mmol/L (0.4-2.0) H Influenza Type A Antigen Negative (NEGATIVE) Influenza Type B Antigen Negative (NEGATIVE) SARS-CoV-2 Antigen (Rapid) Negative (NEGATIVE) Glucose (Fingerstick) 94 mg/dL (70-99) Test 03/09/22 20:13 03/10/22 04:30 03/10/22 07:19 Glucose (Fingerstick) 192 mg/dL (70-99) H 167 mg/dL (70-99) H White Blood Count 5.6 x10^3/uL (4.0-11.0) Red Blood Count 3.87 x10^6/uL (3.50-5.40) Hemoglobin 10.3 g/dL (12.0-15.5) L Hematocrit 31.7 % (36.0-47.0) L Mean Corpuscular Volume 82 fL (79-100) Mean Corpuscular Hemoglobin 27 pg (25-35) Mean Corpuscular Hemoglobin Concent 33 g/dL (31-37) Red Cell Distribution Width 15.7 % (11.5-14.5) H Platelet Count 252 x10^3/uL (140-400) Neutrophils (%) (Auto) 80 % (31-73) H Lymphocytes (%) (Auto) 18 % (24-48) L Monocytes (%) (Auto) 2 % (0-9) Eosinophils (%) (Auto) 0 % (0-3) Basophils (%) (Auto) 0 % (0-3) Neutrophils # (Auto) 4.5 x10^3/uL (1.8-7.7) Lymphocytes # (Auto) 1.0 x10^3/uL (1.0-4.8) Monocytes # (Auto) 0.1 x10^3/uL (0.0-1.1) Eosinophils # (Auto) 0.0 x10^3/uL (0.0-0.7) Basophils # (Auto) 0.0 x10^3/uL (0.0-0.2) Sodium Level 136 mmol/L (136-145) Potassium Level 4.1 mmol/L (3.5-5.1) Chloride Level 98 mmol/L (98-107) Carbon Dioxide Level 31 mmol/L (21-32) Anion Gap 7 (6-14) Blood Urea Nitrogen 21 mg/dL (7-20) H Creatinine 1.0 mg/dL (0.6-1.0) Estimated GFR (Cockcroft-Gault) 55.1 BUN/Creatinine Ratio 21 (6-20) H Glucose Level 159 mg/dL (70-99) H Calcium Level 9.2 mg/dL (8.5-10.1) Magnesium Level 1.9 mg/dL (1.8-2.4) Total Bilirubin 0.3 mg/dL (0.2-1.0) Aspartate Amino Transferase (AST) 16 U/L (15-37) Alanine Aminotransferase (ALT) 26 U/L (14-59) Alkaline Phosphatase 73 U/L (46-116) Total Protein 7.4 g/dL (6.4-8.2) Albumin 3.3 g/dL (3.4-5.0) L Albumin/Globulin Ratio 0.8 (1.0-1.7) L Laboratory Tests 03/09/22 11:22 03/10/22 04:30 Laboratory Tests 03/09/22 11:22 03/10/22 04:30 Meds Current Medications Medications (Trade) Dose Ordered Sig/Jam Route PRN Reason Start Time Stop Time Status Last Admin Dose Admin Sodium Chloride 1,000 ml @ 999 mls/hr 1X ONCE IV 03/09/22 12:00 03/09/22 13:00 DC 03/09/22 12:23 Diphenhydramine HCl (Benadryl) 25 mg 1X ONCE IVP 03/09/22 12:00 03/09/22 12:03 DC 03/09/22 12:23 Fentanyl Citrate (Fentanyl 2ml Vial) 50 mcg 1X ONCE IVP 03/09/22 12:15 03/09/22 12:16 DC 03/09/22 12:23 Ondansetron HCl (Zofran) 4 mg 1X ONCE IVP 03/09/22 12:15 03/09/22 12:19 DC 03/09/22 12:23 Famotidine (Pepcid Vial) 20 mg 1X ONCE IVP 03/09/22 12:15 03/09/22 12:19 DC 03/09/22 12:23 Doxycycline Hyclate 100 mg/ Dextrose 100 ml @ 50 mls/hr 1X ONCE IV 03/09/22 13:30 03/09/22 15:29 DC 03/09/22 13:19 Ceftriaxone Sodium (Rocephin) 1 gm 1X ONCE IVP 03/09/22 13:30 03/09/22 13:31 DC 03/09/22 13:19 Methylprednisolone Sodium Succinate (SOLU-Medrol 125MG VIAL) 125 mg 1X ONCE IV 03/09/22 14:30 03/09/22 14:31 DC 03/09/22 14:35 Atorvastatin Calcium (Lipitor) 10 mg HS PO 03/09/22 21:00 03/09/22 22:03 Carvedilol (Coreg) 25 mg BIDWMEALS PO 03/09/22 18:00 03/10/22 08:50 Cyanocobalamin (Vitamin B-12) 1,000 mcg DAILY PO 03/10/22 09:00 03/10/22 08:48 Diclofenac Sodium (Voltaren) 1 michael QID TP 03/09/22 21:00 03/10/22 08:47 Fluticasone Propionate (Flonase) 2 spray DAILY NS 03/10/22 09:00 03/10/22 08:47 Glipizide (Glucotrol) 5 mg DAILYWBKFT PO 03/10/22 08:00 03/10/22 08:48 Hydroxychloroquine Sulfate (Plaquenil) 200 mg BID PO 03/09/22 21:00 03/10/22 08:48 Montelukast Sodium (Singulair) 10 mg HS PO 03/09/22 21:00 03/09/22 22:03 Fish Oil (Fish Oil) 1,000 mg DAILY PO 03/10/22 09:00 03/10/22 08:47 Amlodipine Besylate (Norvasc) 2.5 mg DAILY PO 03/10/22 09:00 03/10/22 08:49 Calcium/Vitamin D (Oscal D 500mg/ 200uts) 1 tab DAILY PO 03/10/22 09:00 03/10/22 08:48 Duloxetine HCl (Cymbalta) 30 mg DAILY PO 03/10/22 09:00 03/10/22 08:48 Lisinopril (Prinivil) 20 mg DAILY PO 03/10/22 09:00 03/10/22 08:48 Metformin HCl (Glucophage) 1,000 mg BIDWMEALS PO 03/09/22 18:00 03/10/22 08:50 Pantoprazole Sodium (Protonix) 40 mg DAILYAC PO 03/10/22 07:30 03/10/22 08:48 Heparin Sodium (Porcine) (Heparin Sodium) 5,000 unit Q8HRS SQ 03/09/22 22:00 03/09/22 22:10 Doxycycline Hyclate (Vibra-Tab) 100 mg BID PO 03/09/22 21:00 03/10/22 08:48 Sodium Chloride 1,000 ml @ 100 mls/hr Q10H IV 03/09/22 18:00 03/10/22 00:58 Methylprednisolone Sodium Succinate (SOLU-Medrol 125MG VIAL) 60 mg BID92 IV 03/10/22 09:00 03/10/22 08:51 Assessment Assessment 1. Sepsis. 2. Acute on chronic respiratory failure. 3. Pneumonia. 4. Diabetes mellitus type 2. 5. Rheumatoid arthritis, on Plaquenil. 6. Psoriasis, recently started on Otezla. 7. History of narcotic overuse. 8. Coronary artery disease. 9. Hypertension. 10. Hypertensive crisis. 11. Chronic kidney disease 2. 12. Hyperlipidemia. 13. History of hepatitis C. 14. Anxiety. 15. Depression. 17. Exacerbation of chronic obstructive pulmonary disease. 18. Gastroesophageal reflux disease. 19. Chronic cognitive deficits. 20. Physical deconditioning. PLAN: 1. Acute hypoxic respiratory failure and pneumonia. Continue IV Rocephin and doxycycline. Consult Dr. Carranza for pulmonary evaluation and management. 2. Sepsis. Consult Dr. Barger for Infectious Disease evaluation and management. Start IV fluids. Continue IV Rocephin and doxycycline. Follow up urinalysis, urine culture and blood culture and COVID PCR test. repeat Lactic acid level 3.5 3. Physical deconditioning. Monitor her mental status closely. 4. Chronic pain. I will use tramadol, but carefully and with caution. Also use Tylenol as needed. 5. Sleep apnea, we will need CPAP/BiPAP at night. 6. Rt groin wound consult wound care. 7. Acute metabolic encephalopathy. Improving. D/w patient and family. For details, please refer to the orders. Prognosis of this patient is poor due to her multiple medical problems. Plan Plan For more details regarding further plans, please refer to the orders. Justifications for Admission Other Justification IZA MUNSON MD Mar 10, 2022 09:30
--- NOTE | 2022-03-10 10:18 | EKG ---
[facility] [address] [place] [address] Test Date: 2022-03-09 Test Time: 11:29:59 Pat Name: BORIS BULLOCK Department: Room: [facility] Gender: F Janitor: : 1955 Requested By: ANNMARIE MCGHEE Order Number: [id number] Reading MD: oDug Flynn Measurements Intervals [place] Rate: 68 P: 69 AK: 172 QRS: 40 QRSD: 100 T: 52 QT: 428 QTc: 455 Interpretive Statements SINUS RHYTHM Electronically Signed On 03-11-2022 18:23:07 CDT by Doug Flynn
--- NOTE | 2022-03-10 10:22 | CONS ---
DATE OF CONSULTATION: 03/10/2022 PULMONARY CONSULTATION ATTENDING PHYSICIAN: Ric Estrada MD REASON FOR CONSULTATION: Dyspnea. HISTORY OF PRESENT ILLNESS: The patient is a 66-year-old female who is known to us from our office. The patient has a history of severe COPD with last FEV1 of 0.94. She has chronic hypoxic respiratory failure. She is on home oxygen at 2 liters. She also has a history of sleep apnea for which she has been on CPAP at nighttime. She has coronary artery disease, history of hepatitis C, hypertension and multiple other chronic problems. The patient was brought into the hospital with complaint of shortness of breath for the last few days. She does have a mild cough. Mostly nonproductive. No chest pain, no headaches, no nausea, vomiting or diarrhea. The patient did receive her COVID vaccine including booster. Her influenza A and B and SARS COVID rapid antigen test was negative. Patient's chest x-ray revealed a questionable right lower lobe infiltrate versus atelectasis. The patient is currently on oxygen 2 liters. I have been asked to see her for further evaluation. PAST MEDICAL HISTORY: Significant for history of COPD, severe, as discussed above. History of obstructive sleep apnea/component of obesity hypoventilation syndrome. She is not using her CPAP as it is on recall. History of diabetes, history of hypertension, hyperlipidemia, history of hep C, anxiety, depression, GE reflux. CKD stage 2. PAST SURGICAL HISTORY: Tubal ligation and others. ALLERGIES: REVIEWED LISTED IN THE MRAD INCLUDING PENICILLIN. MEDICATIONS: Reviewed as listed in the MRAD. REVIEW OF SYSTEMS: Twelve-point review of system obtained. Pertinent positives discussed in my present illness, otherwise noncontributory. All systems that were negative were reviewed as well. SOCIAL HISTORY: Smoked for 40 years before quitting. PHYSICAL EXAMINATION: VITAL SIGNS: Reviewed. Pulse ox is 96% on 2 liters, afebrile, blood pressure on the high side, 181 systolic. NECK: Supple. LUNGS: With diminished breath sounds posteriorly. No wheezing. CARDIOVASCULAR: With a regular rate. ABDOMEN: Soft, obese. EXTREMITIES: With no pitting edema. LABORATORY DATA: Reviewed. BUN 21, creatinine 1.0. Albumin 3.3. White cell count 5.6, hemoglobin 10.3 and platelets are 252. IMPRESSION: 1. Acute exacerbation of chronic obstructive pulmonary disease, triggered by acute bronchitis versus early right lower lobe pneumonia. 2. Underlying severe chronic obstructive pulmonary disease with an FEV1 of 0.94, which is severe. She also has chronic hypoxic respiratory failure. She is on home oxygen at 2 liters. She now comes in with acute exacerbation. 3. History of obstructive sleep apnea overlap with obesity hypoventilation syndrome. She has not used her CPAP/BiPAP due to the recall. We will obtain arterial blood gases and assess the need for chronic hypercapnia and nightly use of BiPAP. 4. Underlying obesity. RECOMMENDATIONS: 1. Continue with present oxygen 2 liters. 2. Obtain arterial blood gases. 3. IV steroids. 4. Empiric antibiotics with doxycycline and Rocephin. 5. Heparin for deep venous thrombosis prophylaxis. 6. Continue present nebulizer treatments. 7. We will follow along with you. BART DR: Jeremiah TID: [id number]
[2022-03-10 10:51] VITALS: BP 140/58
[2022-03-10 11:23] LABS: BASE EXCESS ABG 2 mmol/L (-3-3); HCO3 ABG 27 mmol/L (21-28); PCO2 ABG 44 mmHg (35-46); PO2 ABG 100 mmHg (65-108); SAT O2 ABG 97 % (92-99)
[2022-03-10 11:24] LABS: FIO2 ABG 3L 02
--- NOTE | 2022-03-10 11:45 | NUR ---
Wound Care Wound Type/Assessment: patient seen per wound care consult. see wound assessment. patient has what appears to be an abscess in the right groin. patient said she has had off and on for 2 years, sometimes there is drainage. at this time no drainage noted. appears to have a white head to the area. Treatment Recommendations/Plan: Recommendations of a consult to General Surgery, d/t no drainage - no dressing recommendations at this time Recommended Referrals/Tests: Referral to General Surgery Discharge Recommendations for dressings: wound care will continue to f/u.
--- NOTE | 2022-03-10 12:43 | NUR ---
SS following for discharge planning. SS reviewed pt chart and discussed with pt RN. Pt is from home with family and is currently requiring oxygen at two liters nasal canula. COVID19 negative. Pt on IV Solu-Medrol, IV Rocephin, and PO Doxycycline. PT/OT/ST ordered. PO diet. PT/OT recommended nursing home unit. SS met with pt and family in room and discussed discharge planning and nursing home unit. Pt and family declining nursing home unit at this time. Pt reported that she is going home. Pt agreeable to home healthcare with no preference of company. Referral sent to [facility], ; fax [phone]. SS will continue to follow for discharge planning.
[2022-03-10 15:00] VITALS: BP 173/76
[2022-03-10] MEDS: cefTRIAXone IV Push 2 GM VIAL. IVP SCH (16:08)
[2022-03-10 16:43] LABS: BARBITURATES NEG (NEG); BENZODIAZEPINES NEG (NEG); CANNABINOIDS NEG (NEG); COCAINE NEG (NEG); METHADONE NEG (NEG); OPIATES NEG (NEG); PHENCYCLIDINE NEG (NEG)
[2022-03-10 17:15] LABS: AMPHETAMINE/METHAMPHETAMINE NEG (NEG)
[2022-03-10 19:00] VITALS: BP 159/75
[2022-03-10] MEDS: MONTELUKAST SODIUM 10 MG TABLET. PO SCH (21:04)
[2022-03-10] MEDS: ATORVASTATIN CALCIUM 10 MG TABLET. PO SCH (21:04)
--- NOTE | 2022-03-10 22:06 | CONS ---
DATE OF CONSULTATION: 03/10/2022 REQUESTING PHYSICIAN: Dr. Ric Estrada. REASON FOR CONSULTATION: Pneumonia. HISTORY OF PRESENT ILLNESS: This is a 66-year-old female with morbid obesity, who came in with not feeling well, no energy, weakness. The patient denied any fever, denied any nausea, vomiting, diarrhea. Denied any shortness of breath. The patient was found to have questionable pneumonia. The patient did have lactic acid up to 4.3. White count is normal and no fever. The patient has been started on Rocephin and doxycycline. The patient is feeling really good appears to be that she is back to her baseline. The patient has no other complaints other than on the right medial thigh, the patient does have a lesion for about more than a year and off and on, it gets bigger and it gets smaller that they wanted me to check it out. PAST MEDICAL HISTORY: Positive for morbid obesity, gastroesophageal reflux disease, hyperlipidemia, CKD, COPD, coronary artery disease, hypertension, hepatitis C, anxiety disorder. SOCIAL HISTORY: Negative for smoking, alcohol or illicit drug use. The patient does use oxygen at home. ALLERGIES: ALLERGIC TO PENICILLIN AND LEVOFLOXACIN. REVIEW OF SYSTEMS: As per the HPI. All other systems reviewed and are negative. PHYSICAL EXAMINATION: GENERAL: Alert, oriented female, not in distress. VITAL SIGNS: Stable. Temperature 98.0, pulse 82, respirations 18, blood pressure 140/58. HEENT: Both pupils are round and reacting. No conjunctival lesion. No lesion in the mouth. NECK: Supple, no JVP, no lymphadenopathy. LUNGS: Clear. HEART: S1, S2, regular. ABDOMEN: Benign. EXTREMITIES: No edema or cyanosis. SKIN: Unremarkable. The medial thigh lesion what appears to be probably some sort of vascular lesion that is reducible and it is not abscess, no infection, maybe there is a hemangioma. Eventually, the resection of biopsy might be helpful. LABORATORY DATA: White count is normal. BUN and creatinine is normal. Lactic acid improved. Influenza and COVID is negative. The chest x-ray showed mild right basilar infiltrate. IMPRESSION: 1. Lactic acidosis. 2. Respiratory failure. 3. Pneumonia. 4. Diabetes mellitus. 5. Rheumatoid arthritis. 6. Psoriasis. 7. Coronary artery disease. 8. Hypertension. RECOMMENDATIONS: Continue Rocephin and doxycycline soon to be able to change to oral. Supportive care and we will continue to follow. Thank you very much, Dr. Estrada, for giving me opportunity to participate in this patient's care. QUOC/LOUISA DR: Bonnie TID: [id number]
[2022-03-10 23:00] VITALS: BP 110/76
[2022-03-11] MEDS ORDERED: ALPRAZolam 0.5 MG TABLET PO ONE (01:15)
--- NOTE | 2022-03-11 01:21 | NUR ---
0045: Pt fighting wearing BiPap - started screaming that she wanted to leave. RN entered room and instructed pt to stop yelling as was disturbing other pts. Pt continued to yell. RN removed BiPap and instructed that had to wear NC if not going to wear BiPap. Pt yelling about being trapped in room and how the tv wasn't where it was supposed to be and neither were the chairs. When RN informed pt that was in a different room from when she got here, pt stated that staff was lying to her. RN had poly raphael called as pt out in [place] yelling that she was leaving - pulled IV out - staff got wc and got pt to sit down. Pt kept on with tirade about staff lying to her and wanting to kim everyone unless she got to go home. 0103: Marie maintenance worker house trailer called to be made aware of situation. Suggested calling - pt already on phone with 0105: Dr Estrada called and made aware of situation. 0110: Pt still ranting - did return to room. Dr Estrada called for something IM to help calm pt down. 0.5 Alprazolam ordered and administered. After talking to again who told information security risk analyst would be up here - without giving a time frame -pt calmed somewhat. Candace THAKUR in room helping assist with pt - able to get pt to calm somewhat - still insisting staff is lying. 0133: Daughter called to check on pt. RN informed daughter of what has been done and would like to see if medication calms pt first, but that if pt did not calm then would call for her to come see pt. Will continue to monitor pt status closely. Addendum: 03/11/22 at 0451 by LEENA PATRICK RN RN 1725: Pt fell - refused VS, refused to get up off floor. Stated was "going to stay on floor until my ride gets here." Pt belligerent toward staff - accused tech of being snotty when tech was just offering to help. Nursing supervisor communications and signals notified. 5091: Pt got self off floor - and put self back in the wheelchair. Will continue to monitor pt status.
[2022-03-11] MEDS: traMADol 50 MG TABLET PO PRN ×2 (01:30→09:13)
[2022-03-11 03:00] VITALS: BP 134/60
[2022-03-11] MEDS: HEPARIN for SUB-Q USE 5,000 UNIT/ML VIAL. SQ SCH (06:00)
[2022-03-11 07:00] VITALS: BP 152/85
[2022-03-11] MEDS: INSULIN LISPRO 300 UNITS/3 ML VIAL. SQ SCH ×2 (07:30→11:30)
[2022-03-11] MEDS: BUDESONIDE 0.5 MG/2 ML NEBU. NEB SCH (07:39)
[2022-03-11] MEDS: ALBUTEROL SULFATE 2.5 MG/3 ML NEBU. NEB SCH ×2 (07:39→11:58)
[2022-03-11] MEDS: methylPREDNISolone SOD SUCC PF 125 MG/2 ML VIAL. IV SCH (09:00)
[2022-03-11] MEDS: DICLOFENAC SODIUM 1% TOPICAL GEL 100GM TUBE. TP SCH ×2 (09:00→13:00)
[2022-03-11] MEDS: CYANOCOBALAMIN (VITAMIN B-12) 1,000 MCG TABLET. PO SCH (09:10)
[2022-03-11] MEDS: PANTOPRAZOLE 40 MG TABLET.DR. PO SCH (09:10)
[2022-03-11] MEDS: DULoxetine HCL 30 MG CAPSULE.DR PO SCH (09:10)
[2022-03-11] MEDS: DOXYCYCLINE HYCLATE 100 MG TABLET PO SCH (09:11)
[2022-03-11] MEDS: CARVEDILOL 12.5 MG TABLET. PO SCH (09:11)
[2022-03-11] MEDS: LISINOPRIL 20 MG TABLET PO SCH (09:11)
[2022-03-11] MEDS: CALCIUM CARB/VIT D3 500/200 TABLET. PO SCH (09:12)
[2022-03-11] MEDS: metFORMIN 500 MG TABLET PO SCH (09:12)
[2022-03-11] MEDS: OMEGA-3 FATTY ACIDS/FISH OIL 1,000 MG CAPSULE. PO SCH (09:12)
[2022-03-11] MEDS: FLUTICASONE 50MCG/NASAL SPRAY 16GM BOTTLE. NS SCH (09:13)
[2022-03-11] MEDS: HYDROXYCHLOROQUINE 200 MG TABLET PO SCH (09:13)
[2022-03-11] MEDS: glipiZIDE 5 MG TABLET PO SCH (09:13)
[2022-03-11] MEDS ORDERED: CEFD300C PO (09:32)
[2022-03-11] MEDS ORDERED: METH4TAB2 PO (09:32)
--- NOTE | 2022-03-11 09:38 | SNU/HH DC ---
DISCHARGE WITH HOME HEALTH DISCHARGE INFORMATION: Final Diagnosis: Problems Medical Problems: (1) Pneumonia Status: Acute Condition on Discharge: Stable HOME HEALTH: Face to Face: I certify this patient is under my care and that I, or a nurse practitioner or physician's assistant hall director working with me, had a face to face encounter that meets the physician face to face encounter requirements with this patient on 03/11/22. RN For Eval/Treatment: Yes Physical Therapy For: Evalulation/Treatment Occupational Therapy For: Evaluation/Treatment (with walker) Pt Meets Homebound Status: Poor coordination w/ amb., Unsteady balance w/ amb,, Frequent falls w/ injury POST DISCHARGE ORDERS: Activity Instructions for Disc: Activity as tolerated Weight Bearing Status after Di: As tolerated DIET AFTER DISCHARGE: ADA CHECKS AFTER DISCHARGE: Checks after discharge: Check blood press - daily, Check blood sugar, ac/hs FOLLOW-UP: PCP to follow Home Health: Yes Follow up with: Dr.Pratip lomeli On Monday, March 14 at 12 PM. TREATMENT/EQUIPMENT ORDERS: Adaptive Equipment Issued: None Discharge Respiratory Equipmen: Oxygen (2 lit/min), Nebulizer, CPAP CERTIFICATION STATEMENT: Certification Statement: Certification Statement: Based on the above finding, I certify that this patient is confined to the home and needs intermittent chcf care, physical therapy and/or speech therapy, or continues to need occupational therapy.~ This patient is under my care, and I have initiated the establishment of the plan of care.~ This patient will be followed by myself or a community physician who will periodically review the plan of care. Home Meds Active Scripts Cefdinir (CEFDINIR) 300 Mg Capsule, 1 CAP PO BID for Pneumonia, #14 CAP Prov:IZA LOMELI MD 03/11/22 Methylprednisolone (MEDROL) 4 Mg Tab.ds.pk, 1 PKG PO UD for COPD, #1 PKG Prov:IZA LOMELI MD 03/11/22 Potassium Chloride (KLOR-CON M20) 20 Meq Tab.er.prt, 20 MEQ PO DAILYWBKFT for low k for 30 Days, #30 TAB.SR 3 Refills Prov:IZA LOMELI MD 11/26/19 Ipratropium/Albuterol Sulfate (DUONEB 0.5-3(2.5) MG/3 ML) 3 Ml Ampul.neb, 3 ML NEB RTQID for COPD for 30 Days, #120 EACH Prov:IZA LOMELI MD 08/06/19 Diclofenac Sodium (VOLTAREN) 1 Cristine Cristine, 1 CRISTINE TP QID, #400 GM Prov:CHRISTAL GROSSMAN SHANI 04/29/15 Glipizide (GLIPIZIDE) 5 Mg Tablet, 1 TAB PO DAILY, #60 TAB 0 Refills Prov:YANCY GROSSMANICE Leigh CORPORATE ACCOUNTANT 12/05/14 Lisinopril/Hydrochlorothiazide (LISINOPRIL-HCTZ 20-25 MG TAB) 1 Each Tablet, 1 TAB PO DAILY, #60 TAB 0 Refills Prov:CHRISTAL GROSSMAN SHANI 12/05/14 Carvedilol (COREG ) 12.5 Mg Tablet, 25 MG PO BIDWMEALS, #60 TAB Prov:CHRISTAL GROSSMAN SHANI 12/05/14 Reported Medications Calcium Citrate/Vitamin D3 (Calcium Cit 200-Vit D3 250 Tab) 1 Each Tablet, 1 EACH PO DAILY for vitamin, TAB 08/05/19 [place]-3 Fatty Acids/Fish Oil (FISH OIL 1,000 MG CAPSULE) 1 Each Capsule, 1 EACH PO DAILY for vitamin, CAP 08/05/19 Acetaminophen (ACETAMINOPHEN) 500 Mg Tablet, 1 TAB PO PRN Q6HRS PRN for mild pain/fever, TAB 08/05/19 Cyanocobalamin (Vitamin B-12) (VITAMIN B-12) 1,000 Mcg Tablet, 1 TAB PO DAILY for vitamin, #30 TAB 2 Refills 08/05/19 Tramadol Hcl (TRAMADOL HCL) 50 Mg Tablet, 50 MG PO Q6HRS PRN for PAIN, TAB 08/05/19 Atorvastatin Calcium (ATORVASTATIN CALCIUM) 10 Mg Tablet, 10 MG PO HS for FOR CHOLESTEROL, #30 TAB 0 Refills 08/05/19 Amlodipine Besylate (AMLODIPINE BESYLATE) 2.5 Mg Tablet, 2.5 MG PO DAILY for HTN, TAB 08/05/19 Mometasone/Formoterol (DULERA 200 MCG/5 MCG INHALER) 13 Gm Hfa.aer.ad, 2 PUFF IH BID for COPD, #13 GM 5 Refills 08/05/19 Metformin Hcl (METFORMIN HCL) 1,000 Mg Tablet, 1000 MG PO BIDWMEALS for Diabetes, TAB 08/05/19 Duloxetine Hcl (CYMBALTA) 60 Mg Capsule.dr, 60 MG PO DAILY for arthritis, CAP 08/05/19 Hydroxychloroquine Sulfate (HYDROXYCHLOROQUINE SULFATE) 200 Mg Tablet, 200 MG PO BID PRN for arthritis, TAB 08/05/19 Tizanidine Hcl (TIZANIDINE HCL) 4 Mg Tablet, 4 MG PO TID PRN for MUSCLE SPASMS, TAB 08/05/19 Montelukast Sodium (MONTELUKAST SODIUM TABLET ) 10 Mg Tablet, 10 MG PO HS for FOR ASTHMA, #30 TAB 0 Refills 11/28/14 Fluticasone Propionate (FLUTICASONE PROPIONATE NASAL SPRAY) 16 Gm [place].susp, 2 SPRAY NS DAILY, #1 INHALER 11 Refills 11/28/14 Omeprazole (OMEPRAZOLE) 20 Mg Capsule.dr, 1 CAP PO DAILY, #30 CAP 5 Refills 11/28/14 Discontinued Scripts Prednisone (PREDNISONE) 50 Mg Tablet, 1 TAB PO DAILY for steroid, #5 TAB Prov:BLANCA RODRIGUEZ MD 02/21/21 Cefpodoxime Proxetil (CEFPODOXIME PROXETIL) 200 Mg Tablet, 1 TAB PO BID for antibiotic, #14 TAB Prov:BLANCA RODRIGUEZ MD 02/21/21 Prednisone (PREDNISONE ) 10 Mg Tablet, 10 MG PO UD for copd, #30 TAB 0 Refills Take 4 tablets by mouth daily for 3 days, then take 3 tablets by mouth daily for 3 days, then take 2 tablets by mouth daily for 3 days, then take 1 tablets by mouth daily for 3 days, then stop. Prov:IZA LOMELI MD 09/28/19 Cefdinir (CEFDINIR) 300 Mg Capsule, 1 CAP PO BID for UTI, #14 CAP Prov:IZA LOMELI MD 09/28/19 IZA LOMELI MD Mar 11, 2022 09:38
--- NOTE | 2022-03-11 09:44 | PDOC3 ---
IM DISCHARGE SUMMARY Date of Admission Date of Admission Date of Admission: Mar 09, 2022 at 14:05 Date of Discharge Date of Discharge 03/11/22 Primary Diagnosis Primary Diagnosis 1. Sepsis. 2. Acute on chronic respiratory failure. 3. Pneumonia. 4. Diabetes mellitus type 2. 5. Rheumatoid arthritis, on Plaquenil. 6. Psoriasis, recently started on Otezla. 7. History of narcotic overuse. 8. Coronary artery disease. 9. Hypertension. 10. Hypertensive crisis. 11. Chronic kidney disease 2. 12. Hyperlipidemia. 13. History of hepatitis C. 14. Anxiety. 15. Depression. 17. Exacerbation of chronic obstructive pulmonary disease. 18. Gastroesophageal reflux disease. 19. Chronic cognitive deficits. 20. Physical deconditioning. Consults Consults Alex Carranza MD; Brian Barger MD Labs Labs Laboratory Tests Test 03/10/22 11:15 03/10/22 11:30 03/10/22 16:25 03/10/22 16:49 O2 Saturation 97 % (92-99) Arterial Blood pH 7.41 (7.35-7.45) Arterial Blood pCO2 at Patient Temp 44 mmHg (35-46) Arterial Blood pO2 at Patient Temp 100 mmHg (65-108) Arterial Blood HCO3 27 mmol/L (21-28) Arterial Blood Base Excess 2 mmol/L (-3-3) FiO2 3l 02 Glucose (Fingerstick) 135 mg/dL (70-99) H 285 mg/dL (70-99) H Urine Opiates Screen Neg (NEG) Urine Methadone Screen Neg (NEG) Urine Barbiturates Neg (NEG) Urine Phencyclidine Screen Neg (NEG) Urine Amphetamine/Methamphetamine Neg (NEG) Urine Benzodiazepines Screen Neg (NEG) Urine Cocaine Screen Neg (NEG) Urine Cannabinoids Screen Neg (NEG) Urine Ethyl Alcohol Neg (NEG) Test 03/10/22 20:21 03/11/22 07:21 Glucose (Fingerstick) 213 mg/dL (70-99) H 164 mg/dL (70-99) H Brief hospital course Brief hospital course This 66-year-old female with history of COPD, chronic respiratory failure, on oxygen by nasal cannula 2 liters per minute at home, rheumatoid arthritis, psoriasis, obstructive sleep apnea, on BiPAP at night, coronary artery disease, history of hepatitis C, hypertension and multiple other medical problems with chronic cognitive deficits, presented to the Emergency Room with complaints of headaches, feeling cold and fatigue. Symptoms have been there for two days. She has also been coughing and mostly currently she is coughing without any expectoration and this is dry cough. The patient tells me that she had fainted and because of that, the family brought her here. No complaints of abdominal pain, nausea, vomiting. In the Emergency Room, the patient was evaluated. Influenzae A and B and SARS-CoV-2 rapid antigen tests were negative. However, her lactic acid level was 4.3. Sodium 138, potassium 4.5, BUN 16, creatinine 1.1, glucose 115. BNP 309. Troponin 10, AST 21, ALT 27. WBC count 8.4, hemoglobin 11.1. CT scan of head was negative for any acute changes. Has mild atrophy and moderate to severe chronic microangiopathic white matter change. Chest x-ray showed mild right basilar infiltrate. Because of the lactic acidosis, likely sepsis and pneumonia, the patient was admitted for further evaluation and management. For more details regarding the past history, family history, social history, surgical history and other details, please refer to the H&P. 1. Acute hypoxic respiratory failure and pneumonia. Continue IV Rocephin and doxycycline. Consult Dr. Carranza for pulmonary evaluation and management. 2. Sepsis. Consult Dr. Barger for Infectious Disease evaluation and management. Start IV fluids. Continue IV Rocephin and doxycycline. Follow up urinalysis, urine culture and blood culture and COVID PCR test. repeat Lactic acid level 3.5 3. Physical deconditioning. Monitor her mental status closely. 4. Chronic pain. I will use tramadol, but carefully and with caution. Also use Tylenol as needed. 5. Sleep apnea, we will need CPAP/BiPAP at night. 6. Rt groin wound consult wound care. 7. Acute metabolic encephalopathy. Improving. D/w patient and family. Patient was agitated last night, wanted to go AMA and also fell once. Better this AM Exacerbation of COPD is improving. Overall better. Discharge home on PO Medrol Dose jojo and Cefdinir for on e 1 week. See me in office in 1 week. Long/short term prognosis is poor. Medications Medications reviewed and reconciled for discharge. Home Meds Active Scripts Cefdinir (CEFDINIR) 300 Mg Capsule, 1 CAP PO BID for Pneumonia, #14 CAP Prov:IZA MUNSON MD 03/11/22 Methylprednisolone (MEDROL) 4 Mg Tab.ds.pk, 1 PKG PO UD for COPD, #1 PKG Prov:IZA MUNSON MD 03/11/22 Potassium Chloride (KLOR-CON M20) 20 Meq Tab.er.prt, 20 MEQ PO DAILYWBKFT for low k for 30 Days, #30 TAB.SR 3 Refills Prov:IZA MUNSON MD 11/26/19 Ipratropium/Albuterol Sulfate (DUONEB 0.5-3(2.5) MG/3 ML) 3 Ml Ampul.neb, 3 ML NEB RTQID for COPD for 30 Days, #120 EACH Prov:IZA MUNSON MD 08/06/19 Diclofenac Sodium (VOLTAREN) 1 Cristine Cristine, 1 CRISTINE TP QID, #400 GM Prov:CHRISTAL GROSSMAN APRN 04/29/15 Glipizide (GLIPIZIDE) 5 Mg Tablet, 1 TAB PO DAILY, #60 TAB 0 Refills Prov:CHRISTAL GROSSMAN APRN 12/05/14 Lisinopril/Hydrochlorothiazide (LISINOPRIL-HCTZ 20-25 MG TAB) 1 Each Tablet, 1 TAB PO DAILY, #60 TAB 0 Refills Prov:CHRISTAL GROSSMAN WHISKEY FILTERER 12/05/14 Carvedilol (COREG ) 12.5 Mg Tablet, 25 MG PO BIDWMEALS, #60 TAB Prov:CHRISTAL GROSSMAN APRN 12/05/14 Reported Medications Calcium Citrate/Vitamin D3 (Calcium Cit 200-Vit D3 250 Tab) 1 Each Tablet, 1 EACH PO DAILY for vitamin, TAB 08/05/19 [place]-3 Fatty Acids/Fish Oil (FISH OIL 1,000 MG CAPSULE) 1 Each Capsule, 1 EACH PO DAILY for vitamin, CAP 08/05/19 Acetaminophen (ACETAMINOPHEN) 500 Mg Tablet, 1 TAB PO PRN Q6HRS PRN for mild pain/fever, TAB 08/05/19 Cyanocobalamin (Vitamin B-12) (VITAMIN B-12) 1,000 Mcg Tablet, 1 TAB PO DAILY for vitamin, #30 TAB 2 Refills 08/05/19 Tramadol Hcl (TRAMADOL HCL) 50 Mg Tablet, 50 MG PO Q6HRS PRN for PAIN, TAB 08/05/19 Atorvastatin Calcium (ATORVASTATIN CALCIUM) 10 Mg Tablet, 10 MG PO HS for FOR CHOLESTEROL, #30 TAB 0 Refills 08/05/19 Amlodipine Besylate (AMLODIPINE BESYLATE) 2.5 Mg Tablet, 2.5 MG PO DAILY for HTN, TAB 08/05/19 Mometasone/Formoterol (DULERA 200 MCG/5 MCG INHALER) 13 Gm Hfa.aer.ad, 2 PUFF IH BID for COPD, #13 GM 5 Refills 08/05/19 Metformin Hcl (METFORMIN HCL) 1,000 Mg Tablet, 1000 MG PO BIDWMEALS for Diabetes, TAB 08/05/19 Duloxetine Hcl (CYMBALTA) 60 Mg Capsule.dr, 60 MG PO DAILY for arthritis, CAP 08/05/19 Hydroxychloroquine Sulfate (HYDROXYCHLOROQUINE SULFATE) 200 Mg Tablet, 200 MG PO BID PRN for arthritis, TAB 08/05/19 Tizanidine Hcl (TIZANIDINE HCL) 4 Mg Tablet, 4 MG PO TID PRN for MUSCLE SPASMS, TAB 08/05/19 Montelukast Sodium (MONTELUKAST SODIUM TABLET ) 10 Mg Tablet, 10 MG PO HS for FOR ASTHMA, #30 TAB 0 Refills 11/28/14 Fluticasone Propionate (FLUTICASONE PROPIONATE NASAL SPRAY) 16 Gm [place].susp, 2 SPRAY NS DAILY, #1 INHALER 11 Refills 11/28/14 Omeprazole (OMEPRAZOLE) 20 Mg Capsule.dr, 1 CAP PO DAILY, #30 CAP 5 Refills 11/28/14 Discontinued Scripts Prednisone (PREDNISONE) 50 Mg Tablet, 1 TAB PO DAILY for steroid, #5 TAB Prov:BLANCA RODRIGUEZ MD 02/21/21 Cefpodoxime Proxetil (CEFPODOXIME PROXETIL) 200 Mg Tablet, 1 TAB PO BID for antibiotic, #14 TAB Prov:BLANCA RODRIGUEZ MD 02/21/21 Prednisone (PREDNISONE ) 10 Mg Tablet, 10 MG PO UD for copd, #30 TAB 0 Refills Take 4 tablets by mouth daily for 3 days, then take 3 tablets by mouth daily for 3 days, then take 2 tablets by mouth daily for 3 days, then take 1 tablets by mouth daily for 3 days, then stop. Prov:IZA MUNSON MD 09/28/19 Cefdinir (CEFDINIR) 300 Mg Capsule, 1 CAP PO BID for UTI, #14 CAP Prov:IZA MUNSON MD 09/28/19 Allergy Allergies Coded Allergies Type Severity Reaction Last Updated Verified Penicillins Allergy Intermediate 09/24/19 Yes aspirin Allergy Intermediate Itching 12/01/14 Yes erythromycin base Allergy Intermediate 11/28/14 Yes levofloxacin Allergy Intermediate HIVES 09/25/19 Yes mushroom Allergy Intermediate 09/24/19 Yes propoxyphene Allergy Intermediate 12/03/14 Yes Follow up On Monday, March 14 at 12PM. DISPOSITION: Home health services Comments Discharge Management - 35 minutes. For other details please refer to discharge instructions Justicifation of Admission Dx: Justifications for Admission: Justification of Admission Dx: Yes Sepsis: Altered Mental Status IZA MUNSON MD Mar 11, 2022 09:44
--- NOTE | 2022-03-11 09:49 | PDOC ---
PULMONARY PROGRESS NOTES DATE: 03/11/22 TIME: 09:46 Subjective Patient feels better and wants to go home. She did not tolerated BiPAP last night Vitals Vital Signs Date Time Temp Pulse Resp B/P (MAP) Pulse Ox O2 Delivery O2 Flow Rate FiO2 03/11/22 09:12 72 152/85 03/11/22 08:30 Nasal Cannula 2.0 03/11/22 07:40 97 03/11/22 07:00 97.6 20 97.6 General: Alert, No acute distress Lungs: Clear Cardiovascular: S1 Abdomen: Soft, Non-tender Extremities: No Edema Skin: Warm Labs Laboratory Tests Test 03/09/22 11:22 03/09/22 12:46 03/09/22 17:13 03/09/22 17:35 White Blood Count 8.4 x10^3/uL (4.0-11.0) Red Blood Count 4.18 x10^6/uL (3.50-5.40) Hemoglobin 11.1 g/dL (12.0-15.5) Hematocrit 34.6 % (36.0-47.0) Mean Corpuscular Volume 83 fL (79-100) Mean Corpuscular Hemoglobin 27 pg (25-35) Mean Corpuscular Hemoglobin Concent 32 g/dL (31-37) Red Cell Distribution Width 16.1 % (11.5-14.5) Platelet Count 238 x10^3/uL (140-400) Neutrophils (%) (Auto) 73 % (31-73) Lymphocytes (%) (Auto) 19 % (24-48) Monocytes (%) (Auto) 5 % (0-9) Eosinophils (%) (Auto) 2 % (0-3) Basophils (%) (Auto) 0 % (0-3) Neutrophils # (Auto) 6.1 x10^3/uL (1.8-7.7) Lymphocytes # (Auto) 1.6 x10^3/uL (1.0-4.8) Monocytes # (Auto) 0.4 x10^3/uL (0.0-1.1) Eosinophils # (Auto) 0.2 x10^3/uL (0.0-0.7) Basophils # (Auto) 0.0 x10^3/uL (0.0-0.2) Sodium Level 138 mmol/L (136-145) Potassium Level 4.5 mmol/L (3.5-5.1) Chloride Level 99 mmol/L (98-107) Carbon Dioxide Level 30 mmol/L (21-32) Anion Gap 9 (6-14) Blood Urea Nitrogen 16 mg/dL (7-20) Creatinine 1.1 mg/dL (0.6-1.0) Estimated GFR (Cockcroft-Gault) 49.4 BUN/Creatinine Ratio 15 (6-20) Glucose Level 115 mg/dL (70-99) Calcium Level 9.1 mg/dL (8.5-10.1) Total Bilirubin 0.4 mg/dL (0.2-1.0) Aspartate Amino Transf (AST/SGOT) 21 U/L (15-37) Alanine Aminotransferase (ALT/SGPT) 27 U/L (14-59) Alkaline Phosphatase 74 U/L (46-116) Troponin I High Sensitivity 10 ng/L (4-50) JD-Oia-N-Type Natriuretic Peptide 309 pg/mL (0-124) Total Protein 7.4 g/dL (6.4-8.2) Albumin 3.4 g/dL (3.4-5.0) Albumin/Globulin Ratio 0.9 (1.0-1.7) Lactic Acid Level 4.3 mmol/L (0.4-2.0) 3.5 mmol/L (0.4-2.0) Influenza Type A Antigen Negative (NEGATIVE) Influenza Type B Antigen Negative (NEGATIVE) SARS-CoV-2 Antigen (Rapid) Negative (NEGATIVE) Glucose (Fingerstick) 94 mg/dL (70-99) Test 03/09/22 20:13 03/10/22 04:30 03/10/22 05:55 03/10/22 07:19 Glucose (Fingerstick) 192 mg/dL (70-99) 167 mg/dL (70-99) White Blood Count 5.6 x10^3/uL (4.0-11.0) Red Blood Count 3.87 x10^6/uL (3.50-5.40) Hemoglobin 10.3 g/dL (12.0-15.5) Hematocrit 31.7 % (36.0-47.0) Mean Corpuscular Volume 82 fL (79-100) Mean Corpuscular Hemoglobin 27 pg (25-35) Mean Corpuscular Hemoglobin Concent 33 g/dL (31-37) Red Cell Distribution Width 15.7 % (11.5-14.5) Platelet Count 252 x10^3/uL (140-400) Neutrophils (%) (Auto) 80 % (31-73) Lymphocytes (%) (Auto) 18 % (24-48) Monocytes (%) (Auto) 2 % (0-9) Eosinophils (%) (Auto) 0 % (0-3) Basophils (%) (Auto) 0 % (0-3) Neutrophils # (Auto) 4.5 x10^3/uL (1.8-7.7) Lymphocytes # (Auto) 1.0 x10^3/uL (1.0-4.8) Monocytes # (Auto) 0.1 x10^3/uL (0.0-1.1) Eosinophils # (Auto) 0.0 x10^3/uL (0.0-0.7) Basophils # (Auto) 0.0 x10^3/uL (0.0-0.2) Sodium Level 136 mmol/L (136-145) Potassium Level 4.1 mmol/L (3.5-5.1) Chloride Level 98 mmol/L (98-107) Carbon Dioxide Level 31 mmol/L (21-32) Anion Gap 7 (6-14) Blood Urea Nitrogen 21 mg/dL (7-20) Creatinine 1.0 mg/dL (0.6-1.0) Estimated GFR (Cockcroft-Gault) 55.1 BUN/Creatinine Ratio 21 (6-20) Glucose Level 159 mg/dL (70-99) Calcium Level 9.2 mg/dL (8.5-10.1) Magnesium Level 1.9 mg/dL (1.8-2.4) Total Bilirubin 0.3 mg/dL (0.2-1.0) Aspartate Amino Transf (AST/SGOT) 16 U/L (15-37) Alanine Aminotransferase (ALT/SGPT) 26 U/L (14-59) Alkaline Phosphatase 73 U/L (46-116) Total Protein 7.4 g/dL (6.4-8.2) Albumin 3.3 g/dL (3.4-5.0) Albumin/Globulin Ratio 0.8 (1.0-1.7) Coronavirus (COVID-19)(PCR) Not detected (NOT DETECTD) Test 03/10/22 11:15 03/10/22 11:30 03/10/22 16:25 03/10/22 16:49 O2 Saturation 97 % (92-99) Arterial Blood pH 7.41 (7.35-7.45) Arterial Blood pCO2 at Patient Temp 44 mmHg (35-46) Arterial Blood pO2 at Patient Temp 100 mmHg (65-108) Arterial Blood HCO3 27 mmol/L (21-28) Arterial Blood Base Excess 2 mmol/L (-3-3) FiO2 3l 02 Glucose (Fingerstick) 135 mg/dL (70-99) 285 mg/dL (70-99) Urine Opiates Screen Neg (NEG) Urine Methadone Screen Neg (NEG) Urine Barbiturates Neg (NEG) Urine Phencyclidine Screen Neg (NEG) Urine Amphetamine/Methamphetamine Neg (NEG) Urine Benzodiazepines Screen Neg (NEG) Urine Cocaine Screen Neg (NEG) Urine Cannabinoids Screen Neg (NEG) Urine Ethyl Alcohol Neg (NEG) Test 03/10/22 20:21 03/11/22 07:21 Glucose (Fingerstick) 213 mg/dL (70-99) 164 mg/dL (70-99) Laboratory Tests Test 03/10/22 11:15 03/10/22 11:30 03/10/22 16:25 03/10/22 16:49 O2 Saturation 97 % (92-99) Arterial Blood pH 7.41 (7.35-7.45) Arterial Blood pCO2 at Patient Temp 44 mmHg (35-46) Arterial Blood pO2 at Patient Temp 100 mmHg (65-108) Arterial Blood HCO3 27 mmol/L (21-28) Arterial Blood Base Excess 2 mmol/L (-3-3) FiO2 3l 02 Glucose (Fingerstick) 135 mg/dL (70-99) 285 mg/dL (70-99) Urine Opiates Screen Neg (NEG) Urine Methadone Screen Neg (NEG) Urine Barbiturates Neg (NEG) Urine Phencyclidine Screen Neg (NEG) Urine Amphetamine/Methamphetamine Neg (NEG) Urine Benzodiazepines Screen Neg (NEG) Urine Cocaine Screen Neg (NEG) Urine Cannabinoids Screen Neg (NEG) Urine Ethyl Alcohol Neg (NEG) Test 03/10/22 20:21 03/11/22 07:21 Glucose (Fingerstick) 213 mg/dL (70-99) 164 mg/dL (70-99) Medications Active Scripts Medications Dose Route/Sig Max Daily Dose Days Date Category Cefdinir 300 Mg Capsule 1 Cap PO BID 03/11/22 Rx Medrol (Methylprednisolone) 4 Mg Tab.ds.pk 1 Pkg PO UD 03/11/22 Rx Klor-Con M20 (Potassium Chloride) 20 Meq Tab.er.prt 20 Meq PO DAILYWBKFT 30 11/26/19 Rx Duoneb 0.5-3(2.5) Mg/3 Ml (Albuterol/Ipratropium) 3 Ml Ampul.neb 3 Ml NEB RTQID 30 08/06/19 Rx Calcium Cit 200-Vit D3 250 Tab (Calcium Citrate/Vitamin D3) 1 Each Tablet 1 Each PO DAILY 08/05/19 Reported Fish Oil 1,000 Mg Capsule ([place]-3 Fatty Acids/Fish Oil) 1 Each Capsule 1 Each PO DAILY 08/05/19 Reported Acetaminophen 500 Mg Tablet 1 Tab PO PRN Q6HRS PRN 08/05/19 Reported Vitamin B-12 (Cyanocobalamin (Vitamin B-12)) 1,000 Mcg Tablet 1 Tab PO DAILY 08/05/19 Reported Tramadol Hcl 50 Mg Tablet 50 Mg PO Q6HRS PRN 08/05/19 Reported Atorvastatin Calcium 10 Mg Tablet 10 Mg PO HS 08/05/19 Reported Amlodipine Besylate 2.5 Mg Tablet 2.5 Mg PO DAILY 08/05/19 Reported Dulera 200 Mcg/5 Mcg Inhaler (Mometasone/Formoterol) 13 Gm Hfa.aer.ad 2 Puff IH BID 08/05/19 Reported Metformin Hcl 1,000 Mg Tablet 1,000 Mg PO BIDWMEALS 08/05/19 Reported Cymbalta (Duloxetine Hcl) 60 Mg Capsule.dr 60 Mg PO DAILY 08/05/19 Reported Hydroxychloroquine Sulfate 200 Mg Tablet 200 Mg PO BID PRN 08/05/19 Reported Tizanidine Hcl 4 Mg Tablet 4 Mg PO TID PRN 08/05/19 Reported Voltaren (Diclofenac Sodium) 1 Cristine Cristine 1 Cristine TP QID 04/29/15 Rx Glipizide 5 Mg Tablet 1 Tab PO DAILY 12/05/14 Rx Lisinopril-Hctz 20-25 Mg Tab (Lisinopril/Hydrochlorothiazide) 1 Each Tablet 1 Tab PO DAILY 12/05/14 Rx Coreg (Carvedilol) 12.5 Mg Tablet 25 Mg PO BIDWMEALS 12/05/14 Rx Montelukast Sodium Tablet (Montelukast Sodium) 10 Mg Tablet 10 Mg PO HS 11/28/14 Reported Fluticasone Propionate Nasal [place] (Fluticasone Propionate) 16 Gm [place].susp 2 [place] NS DAILY 11/28/14 Reported Omeprazole 20 Mg Capsule.dr 1 Cap PO DAILY 11/28/14 Reported Impression . 1. Acute exacerbation of chronic obstructive pulmonary disease, triggered by acute bronchitis versus early right lower lobe pneumonia. 2. Underlying severe chronic obstructive pulmonary disease with an FEV1 of 0.94, which is severe. She also has chronic hypoxic respiratory failure. She is on home oxygen at 2 liters. She now comes in with acute exacerbation. 3. History of obstructive sleep apnea overlap with obesity hypoventilation syndrome. She has not used her CPAP/BiPAP due to the recall. We will obtain arterial blood gases and assess the need for chronic hypercapnia and nightly use of BiPAP. 4. Underlying obesity. Plan . RECOMMENDATIONS: 1. Continue with present oxygen 2 liters. 2. Arterial blood gases without any significant hypercapnia. 3. IV steroids. Changed to p.o. steroid taper 4. Empiric antibiotics with doxycycline and Rocephin. Changed to p.o. antibiotics 5. Heparin for deep venous thrombosis prophylaxis. 6. Continue present nebulizer treatments. 7. Discussed with patient's family. She has been not compliant with her CPAP at home. She is agreeable to use it on a nightly basis once she receives her new CPAP machine. Follow-up as an outpatient. Okay to discharge SESAR DOMINGUEZ MD Mar 11, 2022 09:48
[2022-03-11] MEDS: IV NORMAL SALINE 1000ML BAG 1,000 ML IV SCH ×2 (10:00)
[2022-03-11 11:00] VITALS: BP 155/65
--- NOTE | 2022-03-11 11:00 | NUR ---
SS following up with discharge planning. SS reviewed pt chart and discussed with pt RN. Pt is from home with family and is currently requiring oxygen at two liters nasal canula. COVID19 negative. Pt has home oxygen. PT/OT recommended group home unit. Pt and family declining group home unit at this time. Pt agreeable to home healthcare with no preference of company. Pt accepted on services with [facility], ; fax [phone]. Discharge orders received and sent to [facility]. Pt's RN notified.
--- NOTE | 2022-03-11 13:23 | NUR ---
Pt left unit at 1320 by wheelchair via private vehicle, accompanied by family. No IV in place at time of discharge, VSS. Discharge paperwork discussed with pt and family. All verbalize understanding.
== END 2022-03-11 13:24 | disposition home health service (06) | DRG 871 ==
LOC: ER 10:52 → 5 NORTH 14:05
PROVIDERS: ADMIT Internal Medicine; ATTEND Internal Medicine
PROC: 5A09357 Assistance with Respiratory Ventilation, Less than 24 Consecutive Hours, Continuous Positive Airway Pressure (ICD-10-PCS; principal; 2022-03-11)
DX: A41.9 Sepsis, unspecified organism (principal); J18.9 Pneumonia, unspecified organism; G93.41 Metabolic encephalopathy; J96.21 Acute and chronic respiratory failure with hypoxia; I16.9 Hypertensive crisis, unspecified; J44.0 Chronic obstructive pulmonary disease with (acute) lower respiratory infection; J44.1 Chronic obstructive pulmonary disease with (acute) exacerbation; Z20.822 Contact with and (suspected) exposure to COVID-19; E11.22 Type 2 diabetes mellitus with diabetic chronic kidney disease; E11.40 Type 2 diabetes mellitus with diabetic neuropathy, unspecified; E66.01 Morbid (severe) obesity due to excess calories; E78.00 Pure hypercholesterolemia, unspecified; E78.5 Hyperlipidemia, unspecified; F32.A Depression, unspecified; F41.9 Anxiety disorder, unspecified; G47.33 Obstructive sleep apnea (adult) (pediatric); G89.29 Other chronic pain; I12.9 Hypertensive chronic kidney disease with stage 1 through stage 4 chronic kidney disease, or unspecified chronic kidney disease; I25.10 Atherosclerotic heart disease of native coronary artery without angina pectoris; K21.9 Gastro-esophageal reflux disease without esophagitis; L40.9 Psoriasis, unspecified; M06.9 Rheumatoid arthritis, unspecified; M79.7 Fibromyalgia; N18.2 Chronic kidney disease, stage 2 (mild); Z79.899 Other long term (current) drug therapy; Z80.0 Family history of malignant neoplasm of digestive organs; Z80.1 Family history of malignant neoplasm of trachea, bronchus and lung; Z82.49 Family history of ischemic heart disease and other diseases of the circulatory system; Z83.3 Family history of diabetes mellitus; Z86.73 Personal history of transient ischemic attack (TIA), and cerebral infarction without residual deficits; Z87.440 Personal history of urinary (tract) infections; Z87.891 Personal history of nicotine dependence; Z91.81 History of falling; Z98.51 Tubal ligation status; Z99.81 Dependence on supplemental oxygen; M19.90 Unspecified osteoarthritis, unspecified site; Z88.0 Allergy status to penicillin; Z88.8 Allergy status to other drugs, medicaments and biological substances
CPT/HCPCS: 36415; 36600; 70450; 71045; 80053; 80307; 82805; 82962; 83605; 83735; 83880; 84484; 85025; 87040; 87428; 93005; 94640; 94660; 96365; 96366; 96375; J0696; J1200; J1644; J2405; J2930; J3010; J3490; J7030; J7060; U0003; 92610-GN; 97116-GP; 97530-GO; 97535-GO; 99285-25; G0378; J7613; J7626

== ENCOUNTER → 2022-03-24 | Outpatient (CLI) | payer MEDICARE, OTHER ==
[2022-03-11 11:00] VITALS: BP 155/65
[~2022-03-24] MED LIST changes: +METH4TAB2 PO
--- NOTE | 2022-03-24 10:36 | KCIC ---
EXAM: Left shoulder, 3 views. HISTORY: Pain. Fall. COMPARISON: None. FINDINGS: 3 views of the left shoulder obtained. There is suspected left glenohumeral joint subluxati on. There is a large inferior marginal osteophyte involving the humeral head. There is moderate gleno id subchondral sclerosis and spurring. There is glenoid bony remodeling. There is minimal acromioclav icular joint spurring. There is degenerative change involving the cervical spine. IMPRESSION: 1. Suspected left glenohumeral joint subluxation. Correlate with physical exam findings. 2. 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 Electronically signed by: Lise Duron MD (03/24/2022 10:33 AM) [id number]
== END ==
LOC: KCIC 09:38
PROVIDERS: ATTEND Internal Medicine
DX: M19.012 Primary osteoarthritis, left shoulder (principal); M47.812 Spondylosis without myelopathy or radiculopathy, cervical region; M25.712 Osteophyte, left shoulder; M75.82 Other shoulder lesions, left shoulder
CPT/HCPCS: 73030